=== PATIENT | female | born 1965 | race Caucasian/White ===

== ENCOUNTER → 2020-08-16 13:48 | Outpatient (BNVA) | payer MEDICAID, SELFPAY | PROVIDERS: PCP Internal Medicine; Referring Provider Internal Medicine; Visit Provider Anesthesiology | DX: M19.011 Primary osteoarthritis, right shoulder (principal); M19.012 Primary osteoarthritis, left shoulder | CPT/HCPCS: 99213 ==

== ENCOUNTER 2020-11-03 12:34 | Outpatient (REF) | payer MEDICAID, SELFPAY | END 2020-11-03 12:35 | disposition home or self-care (01) | LOC: HO.LAB 12:34 | PROVIDERS: PCP Internal Medicine; Visit Provider Internal Medicine | DX: Z20.828 Contact with and (suspected) exposure to other viral communicable diseases (principal) | CPT/HCPCS: 36415; C9803; U0003 ==

== ENCOUNTER 2021-01-06 11:42 | Outpatient (REF) | payer MEDICAID, SELFPAY ==
--- NOTE | ~2021-01-06 | MM_ITS ---
EXAMINATION: MM DIAGNOSTIC DIGITAL BREAST TOMOSYNTHESIS, LEFT CLINICAL INFORMATION: Six-month follow-up left breast calcifications The lifetime risk of breast cancer based on the Tyrer-Cuzick Model is 3.7%. COMPARISON: Mammography: 06/01/2020 and studies dating back to 10/01/2008. TECHNIQUE: Digital breast tomosynthesis is performed in both the craniocaudal and mediolateral oblique views along with computer-aided detection (CAD). Synthesized 2D images are generated from the tomosynthesis. Spot magnification views of the left breast performed in craniocaudal and 90 degree mediolateral views. FINDINGS: There are scattered areas of fibroglandular density (ACR BI-RADS breast composition Category b). There is again noted to be nodular breast parenchyma with a few nodules appearing smaller and a few appearing larger and adjacent to vessels and likely representing intramammary lymph nodes. A circumscribed density about the inferior lateral aspect middle depth appears stable with calcifications. On the nonmagnetic mediolateral oblique projection there appear to be 2 adjacent circumscribed densities medially adjacent to a vessel, one of which appears to have some calcification within it. On 90 degree magnification films there appear to be a few calcifications directly adjacent to the nodule. The calcifications within the breasts are similar in appearance, rounded without linear or branching forms. Recommend 6-month follow-up bilateral mammography with spot magnification views of the left breast and possible ultrasound if the densities appear to be increasing in size. Results are provided to the patient at time of visit by the technologist. MM/MM tomosynthesis diagnostic LT IMPRESSION: Recommend 6-month bilateral mammography with probable benign calcifications and multiple nodules likely representing intramammary lymph nodes. ASSESSMENT: BI-RADS 3: Probably Benign RECOMMENDATION: Diagnostic mammography in 6 months. This patient's information was entered into a reminder system with a target due date for their next mammogram.
== END 2021-01-06 11:43 | disposition home or self-care (01) ==
LOC: HO.MAMMO 11:42
PROVIDERS: PCP Internal Medicine; Visit Provider Internal Medicine
DX: R92.1 Mammographic calcification found on diagnostic imaging of breast (principal)
CPT/HCPCS: 77061; 77065

== ENCOUNTER → 2021-01-20 12:35 | Outpatient (BNVA) | payer MEDICAID, SELFPAY | PROVIDERS: PCP Internal Medicine; Visit Provider Internal Medicine | DX: R07.2 Precordial pain (principal); R94.31 Abnormal electrocardiogram [ECG] [EKG]; I49.3 Ventricular premature depolarization; I42.8 Other cardiomyopathies; I10 Essential (primary) hypertension | CPT/HCPCS: 93005; 99212 ==

== ENCOUNTER → 2021-01-24 07:42 | Outpatient (REF) | payer MEDICAID, SELFPAY ==
--- NOTE | 2021-01-24 07:41 | CA_ITS ---
Transthoracic Echocardiogram Patient (Last, First, Middle): Ramona Olivia G Gender: Female Date of : 1965 Age: 55 Procedure Date: 01/24/2021 Procedure Type: Transthoracic Echocardiogram Location: OP Height: 142.24 cm Weight: 68.04 kg BSA: 1.57 m2 Heart Rate: bpm BP: 139 / 91 mmHg Assistant Therapy Aide: DSDanny Referring MD: Josse Parrish MD Symptoms: I42.9 - Cardiomyopathy, unspecified Study Quality: Fair ECG Rhythm: Sinus Conclusions: - The left ventricular systolic function is normal. The visually estimated ejection fraction is between 55-60%. - No obvious valvular pathology seen on this study. Findings Left Ventricle Normal left ventricular cavity size. There is normal left ventricular wall thickness. The left ventricular systolic function is normal. The visually estimated ejection fraction is between 55-60%. There is no evidence of regional wall motion abnormalities. E/E prime ratio is between 8 and 15 consistent with indeterminate filling pressures. Evidence suggests grade I (mild) diastolic dysfunction. Right Ventricle Normal right ventricular cavity size and systolic function. Atria The left atrium is normal in size. The right atrium is normal in size. Aortic Valve There is a normal trileaflet aortic valve. There is no aortic valve stenosis. There is no aortic valve regurgitation. Mitral Valve The mitral valve appears normal. There is trace mitral valve regurgitation. There is no mitral valve stenosis. Pulmonic Valve The pulmonic valve was not well visualized. Tricuspid Valve Normal tricuspid valve structure. There is mild tricuspid valve regurgitation. The pulmonary artery systolic pressure is normal. Great Vessels Top normal ascending aorta size at 3.7 cm. Venous The inferior vena cava is normal in size and collapses greater than 50% with inspiration. Pericardium/Pleural There is no evidence of pericardial effusion. Prior Study Comparison No significant change compared to prior study dated: 12/23/2019. Recommendations, Care & Conclusions No obvious valvular pathology seen on this study. Measurements M-Mode Liner Measurements Normals - Women/Men LVIDd: 5.07 3.9-5.3/4.2-5.9 cm LVIDd Index: 3.23 1.9-3.2 cm/m2 LVIDs: 3.43 2.0-3.8 cm M-Mode Volumes LV EDV: 122.00 LV ESV: 48.50 2D Linear Measurements IVSd: 1.01 0.6-0.9/0.6-1.0 cm LVIDd: 4.49 3.9-5.3/4.2-5.9 cm LVIDd Index: 2.86 2.4-3.2/2.2-3.1 cm/m2 LVIDs: 3.53 2.0-3.6 cm LVPWd: 0.98 0.7-1.1 cm Ao Root: 2.70 2.1-3.5 cm LA Diam: 3.20 2.7-3.8/3.0-4.0 cm LAIDs Index: 2.04 1.5-2.3 cm/m2 LV Mass: 188.97 67-162/88-224 g LV Mass Index: 120.37 43-95/49-115 g/m2 LVOT Diam: 1.90 3.0+(-)1.3 cm 2D Systolic Function EF 4C: 59.00 >55% EF 2C: 57.20 >55% EF BiP: 58.00 >55% M-Mode Systolic Function FS: 32.30 27-47/25-43% LVEF: 60.20 >55% Mitral Valve MV Pk E: 0.64 MV PK A: 0.89 MV Decel Time: 176.00 E/A: 0.70 E'Lateral: 7.64 E'Medial: 5.61 E/E' Med: 11.40 E/E' Lat: 8.40 PHT: 52.00 MVA PHT: 4.23 Decel [place]: 3.64 Aortic Valve AoV Pk [place]: 1.25 AoV Pk Grad: 6.00 LVOT LVOT Pk [place]: 0.76 LVOT Mn [place]: 0.47 LVOT VTI: 0.17 LVOT Pk Grad: 2.00 LVOT Mn Grad: 1.00 LVOT Diam: 1.90 LVOT Area: 2.84 Diastolic Function MV Pk E: 0.64 MV Pk A: 0.89 E/A: 0.70 E'Medial: 5.61 E/E' Med: 11.40 E' Laterial: 7.64 E/E' Lat: 8.40 Tricuspid Valve TR Pk [place]: 2.21 TR Pk Grad: 20.00 RA Press: 3.00 RVSP: 23.00 Great Vessels Aorta Ao Root-2D: 2.70 2.0-3.7 cm Ao Asc: 3.70 2.1-3.4 cm Ao Arch: 2.30 Updated in Other Vendor System with Status of Final Josse Parrish MD electronically signed on 01/24/2021 1:19:30 PM with status of Final
== END ==
LOC: HO.CARD 07:42
PROVIDERS: PCP Internal Medicine; Visit Provider Internal Medicine
DX: I42.9 Cardiomyopathy, unspecified (principal)
CPT/HCPCS: 93306

== ENCOUNTER → 2021-02-08 07:36 | Outpatient (REF) | payer MEDICAID, SELFPAY ==
--- NOTE | ~2021-02-08 | NM_ITS ---
Lexiscan Myocardial perfusion study Indication: Premature ventricular contractions, chest pressure, assess for coronary disease and ischemia Technique: The patient was brought in for a Lexiscan perfusion study on 02/08/2021 and was injected 0.4 mg of Lexiscan intravenously. Within a minute of this injection 25 mCi of sestamibi was given intravenously. Images were obtained using the SPECT gamma camera interlaced with the gating device. Images were obtained in supine position. Resting perfusion study was performed on 02/09/2021. Patient was administered 25 mCi of sestamibi intravenously at rest. Images were then obtained in supine position. Total DLP 115mGy-cm. Images were processed with the software and compared side to side in short axis, horizontal long axis and vertical long axis views. Findings: Raw acquisition was reviewed. Patient's arms by her side. The stress perfusion study showed small area of mild perfusion defect in the inferolateral wall near apex. With CT attenuation correction, this is still persisting. Otherwise no significant abnormality elsewhere. The gated study shows normal LV systolic function with calculated LVEF of 62%. LV cavity is normal in size. The gated study shows normal wall thickening and contraction of segments. Resting study shows mild defect in the inferolateral wall near apex but otherwise unremarkable. Gating at rest reveals normal wall motion with ejection fraction at 68%. The findings are consistent with small fixed defect in the inferolateral wall near apex with some reversible and fixed components. NM/NM salma perf SPECT rest & str Impression: 1. Myocardial perfusion imaging study shows small defect in the inferolateral wall near apex with reversible and fixed components. However regional contractility/thickening is normal. Could be artifactual. Less likely to represent ischemia/infarct. 2. Gated LVEF is 62% during stress and 68% during rest. 3. Transient ischemic dilatation not present. EKG component of the test was reported separately.
--- NOTE | 2021-02-08 07:40 | CA_ITS ---
Acquisition Time: 2021-02-08 08:04:42 Total Exercise Time: 00:02:00 Test Indications: Abnormal ECG Medications: HCTZ HYDROXYZINE LISINOPRIL PANTOPRAZOLE TRAZADONE Protocol: LEXISCAN Max HR: 122 BPM 74% of Pred: 164 BPM Max BP: 142/094 mmHG Max Work Load: 1.0 METS Pharmacological stress test using Lexiscan while sitting and kicking her feet. Pt tolerated well, feeling anxious, c/o sharp chest pain in epigastric area, that goes away in recovery. Sx of headache reversed with Aminophyline 75 mg IV. EKG without arrhythmias, non-diagnostic for ischemia. Nuclear images to follow. Normotensive response to test. Test reviewed with Dr. Parrish. Referred By: Josse Parrish Overread By: Radha Gastelum NP
== END ==
LOC: HO.CARD 07:36
PROVIDERS: Visit Provider Internal Medicine
DX: R07.2 Precordial pain (principal); I49.3 Ventricular premature depolarization; I42.9 Cardiomyopathy, unspecified; R94.31 Abnormal electrocardiogram [ECG] [EKG]
CPT/HCPCS: 78452; 93017; 93225; 93226; A9500; J0280; J2785

== ENCOUNTER → 2021-03-04 10:33 | Outpatient (REF) | payer MEDICAID, SELFPAY ==
--- NOTE | 2021-03-04 11:15 | ECG_ITS ---
Hook-up date: 2021-03-04 11:03:00 Duration: 47:59:00 Test Indications: PVC'S Medications: 193534 QRS complexes 25 Ventricular ectopics which represent <1 % of total QRS comp. 1 Supraventricular ectopics which represent <1 % of total QRS comp. * Paced QRS complexs which represent % of total QRS comp. VENTRICULAR ECTOPY 25 Isolated 17 Bigeminal Cycles 0 Couplets 0 Runs 0 Beats in Runs * Beats LONGEST at * BPM at :: -- * Beats FASTEST at * BPM at :: -- SUPRAVENTRICULAR ECTOPY 1 Isolated 0 Couplets 0 Runs 0 Beats in Runs * Beats LONGEST at * BPM at :: -- * Beats FASTEST at * BPM at :: -- HEART RATES 65 MIN at 04:37:13 2021-03-05 87 AVG 145 MAX at 17:03:52 2021-03-04 LONGEST RR 1.0400 secs at 03:10:28 2021-03-05 S-T LEVELS Channel 1 - 128 mm at 11:03:00 2021-03-04 - 128 mm at 11:03:00 2021-03-04 Channel 2 - 128 mm at 11:03:00 2021-03-04 - 128 mm at 11:03:00 2021-03-04 Channel 3 - 128 mm at 03:02:21 -- - 128 mm at 03:02:21 Underlying rhythm is sinus; Average ventricular rate 87/min; range 65-145/min; Rare PVCs- 25 over 48 Hrs; Isolated beats and bigeminal cycles; Patient did not report any symptoms in the diary Referred By: Derrick Botello Overread By: DERRICK BOTELLO
== END ==
LOC: HO.CARD 10:33
PROVIDERS: Visit Provider Internal Medicine
DX: I49.3 Ventricular premature depolarization (principal)
CPT/HCPCS: 93225; 93226

== ENCOUNTER → 2021-03-10 12:32 | Outpatient (BNVA) | payer MEDICAID, SELFPAY | PROVIDERS: PCP Internal Medicine; Referring Provider Internal Medicine; Visit Provider Internal Medicine | DX: R07.2 Precordial pain (principal); R94.31 Abnormal electrocardiogram [ECG] [EKG]; I49.3 Ventricular premature depolarization; I42.8 Other cardiomyopathies; I10 Essential (primary) hypertension | CPT/HCPCS: 99212 ==

== ENCOUNTER 2021-07-14 12:50 | Outpatient (REF) | payer MEDICAID, SELFPAY ==
--- NOTE | ~2021-07-14 | MM_ITS ---
EXAMINATION: MM DIAGNOSTIC DIGITAL BREAST TOMOSYNTHESIS, BILATERAL CLINICAL INFORMATION: Waxing and waning nodular parenchymal pattern and probable benign tightly grouped calcifications overlying nodule mid 3:00 left breast. Due for yearly. The lifetime risk of breast cancer based on the Tyrer-Cuzick Model is 7%. COMPARISON: Mammography: 01/06/2021, 06/01/2020, 05/20/2020 (BI-RADS 0), 01/06/2019, 06/28/2017, 10/12/2016 TECHNIQUE: Digital breast tomosynthesis is performed in both the craniocaudal and mediolateral oblique views along with computer-aided detection (CAD). Synthesized 2D images are generated from the tomosynthesis. Additional views are obtained: Magnification left CC, magnification left ML. FINDINGS: There are scattered areas of fibroglandular density (ACR BI-RADS breast composition Category b). Parenchymal pattern is similar to prior studies. There are scattered stable asymmetries and minor fibronodular densities as before. No developing density or interval mass or architectural abnormality. There are scattered bilateral benign round and rim and dermal calcifications. The grouped calcifications 3:00 mid left breast are stable from prior diagnostic exams and will be reassessed again at next bilateral annual exam to conclude long-term surveillance, due in 12 months. Results are provided to the patient at time of visit by the technologist. MM/MM tomosynthesis diagnostic BI IMPRESSION: 1. Fibronodular parenchymal pattern with scattered minor asymmetries similar to prior exams. 2. Probable benign calcifications 3:00 left breast without change from prior diagnostic exams. ASSESSMENT: BI-RADS 3: Probably Benign RECOMMENDATION: Diagnostic mammography at time of next annual exam, due in 12 months. This patient's information was entered into a reminder system with a target due date for their next mammogram.
== END 2021-07-14 12:51 | disposition home or self-care (01) ==
LOC: HO.MAMMO 12:50
PROVIDERS: PCP Internal Medicine; Visit Provider Internal Medicine
DX: R92.1 Mammographic calcification found on diagnostic imaging of breast (principal)
CPT/HCPCS: 77062; 77066

== ENCOUNTER 2021-08-18 12:51 | Outpatient (REF) | payer MEDICAID, SELFPAY ==
--- NOTE | ~2021-08-18 | XR_ITS ---
EXAMINATION: XR SHOULDER, RIGHT CLINICAL INFORMATION: Pain COMPARISON: Previous x-ray November 2018 TECHNIQUE: Three views of the right shoulder. FINDINGS: Bone alignment is normal. No fracture or dislocation is seen. The glenohumeral joint is normal. There is arthritis at the acromioclavicular joint. Soft tissues are unremarkable. XR/XR shoulder RT min 2V IMPRESSION: Arthritis at the acromioclavicular joint.
== END 2021-08-18 12:52 | disposition home or self-care (01) ==
LOC: HO.HOSX 12:51
PROVIDERS: Visit Provider Orthopaedic Surgery
DX: M24.811 Other specific joint derangements of right shoulder, not elsewhere classified (principal)
CPT/HCPCS: 73030; 99202

== ENCOUNTER 2021-09-06 18:07 | Outpatient (REF) | payer MEDICAID, SELFPAY ==
--- NOTE | ~2021-09-06 | MR_ITS ---
EXAMINATION: MR SHOULDER WITHOUT CONTRAST, RIGHT CLINICAL INFORMATION: Right shoulder pain radiating down the right arm. COMPARISON: Most recent right shoulder radiographs dated 08/18/2021. TECHNIQUE: MRI of the shoulder without contrast was performed on a high-field scanner. FINDINGS: ROTATOR CUFF: Supraspinatus tendinosis with full-thickness partial tearing measuring 1.2 x 1.8 cm (AP by ML). There are anterior and posterior supraspinatus tendon fibers remaining intact. Mild infraspinatus tendinosis with anterior articular surface fraying/partial tearing. Mild teres minor muscle atrophy. BICEPS: Mild proximal long head biceps tendinosis. CORACOACROMIAL ARCH: The undersurface of the acromion is curved with no subacromial spur. Uhtg-nh-ptwzfsio acromioclavicular osteoarthritis with capsular and marrow edema. LABRUM/CAPSULE: Mild fraying through the posterosuperior labrum without undersurface tearing. Intact joint capsule. GLENOHUMERAL JOINT/MARROW: Intact articular cartilage. Orhgw-sy-psxiiyih joint effusion. MR/MR shoulder RT wo con IMPRESSION: 1. Supraspinatus tendinosis with full-thickness partial tearing measuring 1.2 x 1.8 cm (AP by ML). Mild infraspinatus tendinosis with anterior articular surface fraying/partial tearing. Mild teres minor muscle atrophy. 2. Mild proximal long head biceps tendinosis. 3. Vejk-ar-mvyohtwj acromioclavicular osteoarthritis with associated edema. 4. Mild peripheral fraying of the posterosuperior labrum. No undersurface of the tear. 5. Pfwks-uw-texwzmko joint effusion.
== END 2021-09-06 18:08 | disposition home or self-care (01) ==
LOC: HO.MRI 18:07
PROVIDERS: Visit Provider Orthopaedic Surgery
DX: M24.811 Other specific joint derangements of right shoulder, not elsewhere classified (principal)
CPT/HCPCS: 73221

== ENCOUNTER → 2021-09-21 11:45 | Outpatient (BNVA) | payer MEDICAID, SELFPAY | PROVIDERS: PCP Internal Medicine; Referring Provider Internal Medicine; Visit Provider Internal Medicine | DX: I49.3 Ventricular premature depolarization (principal); I42.8 Other cardiomyopathies; I10 Essential (primary) hypertension; R07.2 Precordial pain; R94.31 Abnormal electrocardiogram [ECG] [EKG] | CPT/HCPCS: 93005; 99212 ==

== ENCOUNTER → 2021-09-26 13:20 | Outpatient (BNVA) | payer MEDICAID, SELFPAY | PROVIDERS: Visit Provider Orthopaedic Surgery | DX: M75.101 Unspecified rotator cuff tear or rupture of right shoulder, not specified as traumatic (principal) | CPT/HCPCS: 99212 ==

== ENCOUNTER → 2021-09-28 08:42 | Day surgery (SDC) | payer MEDICAID, SELFPAY ==
--- NOTE | 2021-09-27 11:50 | P.CONAN_ITS ---
Documented by User: Mary Warner NP 09/27/21 12:02 HPI - Anesthesia Eval Consult details Narrative: 56yo F for Right Arthroscopic Rotator Cuff Repair Stable at routine cardiac visit 08/2021, recent neg cardiac w/u. See Exam below [facility] Active Problems Active Problems: All Active Problems (Updated 09/26/21 @ 15:22 by Manjinder Watkins MD) Rotator cuff tear, right (Acute) Internal derangement of right shoulder (Acute) Essential hypertension (Acute) Precordial chest pain (Acute) Cardiomyopathy (Acute) PVC (premature ventricular contraction) (Acute) Abnormal EKG (Acute) Osteoarthritis of shoulders, bilateral (Acute) Past Medical History Medical History Cardiomyopathy Essential hypertension Osteoarthritis of shoulders, bilateral PVC (premature ventricular contraction) Family History Family History Mother Heart disease Surgical History Surgical History History of section History of sleeve gastrectomy (~08/2014) History of tubal ligation Social History Social History (Updated 09/21/21 @ 13:01 by CAROL Velazquez) Patient Tobacco Use Status: Never used Tobacco Advance Directives: No Advance Directives Information Provided: Yes Current occupational status: disabled 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 Meds Allergies Allergy/AdvReac Type Severity Reaction Status Date / Time No Known Allergies Allergy Verified 09/21/21 13:01 Home Medications Medication Instructions Recorded Confirmed Last Taken Type albuterol sulfate 90 mcg/actuation 1 inh INHALATION QID 01/20/21 09/21/21 Unknown History aerosol inhaler bupropion HCl 300 mg 24 hr tablet, 300 mg PO QAM 01/20/21 09/21/21 Unknown History extended release (Wellbutrin XL) hydrochlorothiazide 25 mg tablet 25 mg PO DAILY 01/20/21 09/21/21 Unknown History hydroxyzine pamoate 50 mg capsule 50 mg PO Q6H cap 01/20/21 09/21/21 Unknown History (Vistaril) lamotrigine 200 mg tablet 200 mg PO BID 01/20/21 09/21/21 Unknown History (Lamictal) lisinopril 5 mg tablet 5 mg PO DAILY 01/20/21 09/21/21 Unknown History pantoprazole 40 mg tablet,delayed 40 mg PO DAILY 01/20/21 09/21/21 Unknown History release trazodone 50 mg tablet 50 mg PO BEDTIME PRN 01/20/21 09/21/21 Unknown History diltiazem HCl 120 mg 120 mg PO DAILY 09/21/21 09/21/21 Unknown History capsule,extended release 24 hr Exam Exam Date and Time: September 27, 2021 1150 Narrative Narrative: EKG 08/2021 sinus rhythm at 74/Min and nonspecific ST-T changes normal [place]/QTc Holter 02/2021 Underlying rhythm is sinus; Average ventricular rate 87/min; range 65-145/min; Rare PVCs- 25 over 48 Hrs; Isolated beats? and bigeminal cycles; Patient did not report any symptoms in the diary ? Per Dr Parrish at 08/2021 routine cardiac appointment: Lexiscan stress test shows a small defect in the inferolateral wall near apex with reversible and fixed components but with normal contractility.? Coronary CTA with mild calcification in the left main and LAD but otherwise normal coronaries.? No specific therapy required.? Possibly statins in the future. Based on a prior echocardiogram from [facility] in 2013, her LVEF was 40-45%.? There was global hypokinesis.? Repeat echocardiograms had shown normal LVEF.? In the most recent study, it was 55-60%.? No further workup at this time. Assessment and Plan Assessment Anesthesia Assessment: Chart Reviewed Documented by User: Edie Kessler MD 09/28/21 09:17 [facility] Past Medical History Medical History Cardiomyopathy Essential hypertension Osteoarthritis of shoulders, bilateral PVC (premature ventricular contraction) Family History Family History Mother Heart disease Surgical History Surgical History History of section History of sleeve gastrectomy (~08/2014) History of tubal ligation Social History Social History (Updated 09/21/21 @ 13:01 by CAROL Velazquez) Patient Tobacco Use Status: Never used Tobacco Advance Directives: No Advance Directives Information Provided: Yes Current occupational status: disabled 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 Meds Allergies Allergy/AdvReac Type Severity Reaction Status Date / Time No Known Allergies Allergy Verified 09/21/21 13:01 Home Medications Medication Instructions Recorded Confirmed Last Taken Type albuterol sulfate 90 mcg/actuation 1 inh INHALATION QID 01/20/21 09/21/21 Unknown History aerosol inhaler bupropion HCl 300 mg 24 hr tablet, 300 mg PO QAM 01/20/21 09/21/21 Unknown History extended release (Wellbutrin XL) hydrochlorothiazide 25 mg tablet 25 mg PO DAILY 01/20/21 09/21/21 Unknown History hydroxyzine pamoate 50 mg capsule 50 mg PO Q6H cap 01/20/21 09/21/21 Unknown History (Vistaril) lamotrigine 200 mg tablet 200 mg PO BID 01/20/21 09/21/21 Unknown History (Lamictal) lisinopril 5 mg tablet 5 mg PO DAILY 01/20/21 09/21/21 Unknown History pantoprazole 40 mg tablet,delayed 40 mg PO DAILY 01/20/21 09/21/21 Unknown History release trazodone 50 mg tablet 50 mg PO BEDTIME PRN 01/20/21 09/21/21 Unknown History diltiazem HCl 120 mg 120 mg PO DAILY 09/21/21 09/21/21 Unknown History capsule,extended release 24 hr Exam Airway Mallampati Class: II TM Dist: >3cm Neck ROM: Full Denture: Upper
[2021-09-28] VITALS (16 sets, daily range): BP systolic 110–164; BP diastolic 65–107; PULSE 78–100; RESP 16–24; TEMP 36.1–36.5; O2SAT 92–99; BMI 34.9
[2021-09-28 09:25] LABS: Hematocrit 44.6 % (37.0-47.0); Hemoglobin 14.5 g/dl (12.0-16.0); Mean Corpuscular HGB Conc 32.5 g/dl (31.0-35.0); Mean Corpuscular Hemoglobin 29.2 pg (27.0-33.0); Mean Corpuscular Volume 89.9 fL (80.0-98.0); Mean Platelet Volume 10.3 fL (9.4-12.3); Platelet Count 293 X10*3/uL (160-400); Red Blood Count 4.96 X10*6/uL (4.20-5.50); Red Cell Distribution Width 12.5 % (11.0-16.0); White Blood Count 6.5 X10*3/uL (4.8-10.8)
[2021-09-28 09:46] LABS: Anion Gap 15 (12-20); Blood Urea Nitrogen 13 mg/dL (9-16); Calcium 9.6 mg/dL (8.4-10.2); Carbon Dioxide 27 mmol/L (22-29); Chloride 104 mmol/L (96-108); Creatinine Clr Calc Pharmacy 56.4; Estimated Glomerular Filt Rate > 60; Glucose Fasting 100 mg/dL (60-99); Potassium 4.4 mmol/L (3.3-5.1); Sodium 142 mmol/L (135-145)
[2021-09-28] MEDS: Lactated Ringers 1,000 ML 50 ML IVCONT (09:46)
--- NOTE | 2021-09-28 11:20 | MHC.SHP ---
Pre-Procedural Eval Section A Date of Service: 09/28/21 The patient is an INPATIENT: No Changes since office visit: Yes Patient answered all questions; No Cold of Flu in the past 2 weeks, No New Medical Problems and No Changes in Medication The History & Physical has been completed within 30 days and I have reviewed it.: Yes Section B Chief Complaint: joint derangement of right shoulder Allergies: Allergies Allergy/AdvReac Type Severity Reaction Status Date / Time No Known Allergies Allergy Verified 09/21/21 13:01 Plan I have reviewed the history and physical and performed a pertinent physical examination on my patient. No changes have occurred unless specified.
--- NOTE | 2021-09-28 14:12 | P.BOP_ITS ---
Brief Operative Note Date of Service: 09/28/21 Pre-op diagnosis: right RTC tear Post-op diagnosis: other (right stc tear and right biceps tendon tear) Procedure: rtc repair with biceps tenotomy Implants: [employer] Helacoil 4.75 x 2 and Helacoil 5.0 knotless x 2 Surgeon: Manjindre Watkins MD Anesthesia: GETA and regional Was an Humanities And Languages Professor used for this Procedure?: Yes Humanities And Languages Professor: Malaika Rascon Estimated blood loss (mL): 20 IV fluids (mL): 1,100 Pathology: none sent Condition: stable Disposition: PACU
--- NOTE | 2021-09-28 14:15 | W.PM.OPN ---
Operative Note Operative Note Date of Service: 09/28/21 Narrative: Pre-op diagnosis: right RTC tear Post-op diagnosis: other (right stc tear and right biceps tendon tear) Procedure: rtc repair with biceps tenotomy Implants: [employer] Helacoil 4.75 x 2 and Helacoil 5.0 knotless x 2 Surgeon: Manjinder Watkins MD Anesthesia: GETA and regional Was an Internet Researcher used for this Procedure?: Yes Internet Researcher: Malaika Rascon Estimated blood loss (mL): 20 IV fluids (mL): 1,100 Pathology: none sent Condition: stable Disposition: PACU Procedure in detail:? Patient was brought to the operating room and placed the the beach chair position. All bony prominences were well padded and the limb was prepped and draped in standard sterile fashion. A time out was called to identify proper site, proper procedure and proper surgeon. IV antibiotics per weight were administered. I began by making a posterolateral stab incision with a 15 blade. A blunt trochar was placed into the glenohumeral joint and I insufflated the joint with saline and a 30 degree arthroscope was placed. I established an outside- in anterior portal just distal to the biceps tendon. I then began my inspection of the glenohumeral joint.? There was labral fraying and a high grade tear of the bicpe anchor. This was tenotomized and the labrum debrided.? Cartilaginous surfaces were normal.? This subscapularis was intact.? There was a large undersurface full-thickness rotator cuff tear. I then removed the trochar and entered the subacromial space. A direct lateral portal was then established and I performed a bursectomy. The cuff was then examined.? There was a large? crescentic full-thickness tear of the supraspinatus.? it was mobile and I placed 2 4.75 medial row Healicoil anchors and then using a scorpion ran each of these a sutures through the cuff.? I then debrided the rotator cuff bed down to bleeding bone and placed 2 lateral row 5.0 knotless suture anchors and a cross bridge technique brought tht cuff over adn down to the lateral row.? I had excellent reproduction of the normal anatomy of rotator cuff and was satisfied with the compression and tension in the cuff.? I then performed a minimal subacromial decompression with a bur and took my final pictures.? I was satisfied with the repair. ? All instrumentation was then removed portals were closed with nylon.? Patient was placed into a abduction sling after sterile dressings were applied.? She was extubated brought to recovery in stable condition there were no known complications.
[2021-09-28] MEDS: oxyCODONE HCl Immed Release 5 MG TABLET PO (14:50)
[2021-09-28] MEDS: fentaNYL citrate/PF 100 MCG/2 ML VIAL 50 MCG IVPUSH ×2 (14:57→15:50)
[2021-09-28] MEDS: ondansetron HCL 4 MG/2 ML VIAL IVPUSH (15:47)
== END | disposition home or self-care (01) ==
PROVIDERS: Nurse Practitioner; Visit Provider Orthopaedic Surgery
PROC: (CPT 29827; principal; 2021-09-28 10:50)
DX: M75.101 Unspecified rotator cuff tear or rupture of right shoulder, not specified as traumatic (principal); M66.821 Spontaneous rupture of other tendons, right upper arm; M19.011 Primary osteoarthritis, right shoulder; I10 Essential (primary) hypertension
CPT/HCPCS: 29827; 29826; 36415; 80048; 85027; C1713; J0171; J0690; J1100; J2250; J2370; J2405; J3010

== ENCOUNTER → 2021-09-30 15:45 | Outpatient (BNVA) | payer MEDICAID, SELFPAY | PROVIDERS: Visit Provider Orthopaedic Surgery | DX: Z98.890 Other specified postprocedural states (principal) | CPT/HCPCS: 99212 ==

== ENCOUNTER → 2021-10-03 10:22 | Outpatient (BNVA) | payer MEDICAID, SELFPAY | PROVIDERS: Visit Provider Physician Assistant | DX: M75.101 Unspecified rotator cuff tear or rupture of right shoulder, not specified as traumatic (principal) | CPT/HCPCS: 99212 ==

== ENCOUNTER → 2021-11-07 12:39 | Outpatient (BNVA) | payer MEDICAID, SELFPAY | PROVIDERS: Visit Provider Physician Assistant | DX: Z98.890 Other specified postprocedural states (principal) | CPT/HCPCS: 99212 ==

== ENCOUNTER → 2021-12-22 12:11 | Outpatient (BNVA) | payer MEDICAID, SELFPAY | PROVIDERS: Visit Provider Physician Assistant | DX: Z47.89 Encounter for other orthopedic aftercare (principal); Z98.890 Other specified postprocedural states | CPT/HCPCS: 99212 ==

== ENCOUNTER 2022-01-06 14:00 | Outpatient (RCR) | payer MEDICAID, MEDICARE, SELFPAY ==
--- NOTE | 2021-10-19 17:59 | MHC.PT.PR ---
[facility] [place] Office [place] Office [place] Office [address] Elton Dixon 140 [facility] [phone] F: [phone] F: [phone] F: [phone] F: [phone] Physical Therapy Progress Note Diagnosis: R shoulder RTC repair with biceps tenotomy 09/28/21 Date of Surgery: 09/28/21 Date of Evaluation: 10/19/21 Treatments to Date: 1 Cancellations to Date: No Shows to Date: Subjective: Please see initial PT evaluaation Pain Score and Location: 08/07 currently and at worst R shoulder Objective Measures: Please see initial PT evaluation Assessment: Pt is a 56yo F s/p large R RTC repair with biceps tenotomy with Dr. Watkins on 09/28/21. Pt presents today with current impairments in decreased PROM throughout R shoulder, pain, impaired strength, and impaired posture. She requires cues to don/doff abduction pillow sling properly. She is limited functionally with ADLs as she is unable to actively use her RUE per RTC protocol. She is a good candidate for skilled PT services in order to address current impairments per protocol each week. She will be seen 2x/week for 16 weeks in order to progress per protocol in order to facilitate return to PLOF. PT Plan: Frequency and Duration: The patient will be seen 2x/week for 16 weeks Treatment Plan: Therapeutic Exercise Dynamic Therapeutic Activities Neuromuscular Re-ed Manual Therapies Joint Mobilization Taping Gait Home Exercise Program Patient Education Hot or Cold Pack Other Reviewed/ Agreed with Student Documentation: Therapist: Thank you once again for your referral.
--- NOTE | 2022-01-20 14:21 | MHC.PT.DC ---
[facility] [place] Office [place] Office [place] Office [address] Elton Dixon [address] [phone] F: [phone] F: [phone] F: [phone] F: [phone] Physical Therapy Discharge Report Diagnosis: R shoulder RTC repair with biceps tenotomy 09/28/21 Date of Surgery: 09/28/21 Date of Evaluation: 10/19/21 Date of Discharge: 01/20/22 Treatments to Date: 9 Cancellations to Date: 2 No Shows to Date: 4 Discharge Status: Visit Non-compliance Discharge Summary: Pt was seen for PT from 10/19/21-01/06/22 for R RTC repair with biceps tenotomy. Pt made fair progress with PT and had difficulty progressing per RTC protocol. She has had 4 no-shows since SOC including her last 3 scheduled PT appointments. Pt is being from skilled PT at this time per [facility] attendance policy and visit non-compliance. Pt current level of function unknown at this time. Electronically signed by: Alba Cain, PT, DPT Please sign and return to therapist. Thank you for your referral.
== END 2022-01-20 14:21 | disposition home or self-care (01) ==
LOC: HO.PT 14:00
PROVIDERS: PCP Internal Medicine; Visit Provider Physician Assistant
DX: M75.101 Unspecified rotator cuff tear or rupture of right shoulder, not specified as traumatic (principal)
CPT/HCPCS: 97110; 97140; 97162

== ENCOUNTER 2022-07-17 12:01 | Outpatient (REF) | payer MEDICARE, MEDICAID, SELFPAY ==
--- NOTE | ~2022-07-17 | MM_ITS ---
EXAMINATION: MM DIAGNOSTIC DIGITAL BREAST TOMOSYNTHESIS, BILATERAL CLINICAL INFORMATION: Due for yearly. Also follow-up probable benign tightly grouped calcifications overlying small nodule mid 3:00 left breast. The lifetime risk of breast cancer based on the Tyrer-Cuzick Model is 4%. COMPARISON: Mammography: 07/14/2021, 01/06/2021, 06/01/2020, 05/20/2020 (BI-RADS 0), 01/06/2019 TECHNIQUE: Digital breast tomosynthesis is performed in both the craniocaudal and mediolateral oblique views along with computer-aided detection (CAD). Synthesized 2D images are generated from the tomosynthesis. Additional magnification left CC x2 and magnification left ML views are provided. FINDINGS: There are scattered areas of fibroglandular density (ACR BI-RADS breast composition Category b). Parenchymal pattern is similar to prior studies. There is scattered benign nodularity stable to borderline decreased. There is no developing density or interval architectural abnormality. There are no abnormal calcifications. The nodule with fine layering calcifications for follow-up anterior 3:00 left breast is less conspicuous. Calcifications are decreased. This concludes long-term surveillance. The axilla and skin contours are unremarkable. Results are provided to the patient at time of visit by the technologist. MM/MM tomosynthesis diagnostic BI IMPRESSION: -No mammographic evidence of malignancy. -Calcifications for follow-up 3:00 left breast are stable to decreased and now considered to be benign. ASSESSMENT: BI-RADS 2: Benign RECOMMENDATION: Routine annual mammography screening. This patient's information was entered into a reminder system with a target due date for their next mammogram.
== END 2022-07-17 12:02 | disposition home or self-care (01) ==
LOC: HO.MAMMO 12:01
PROVIDERS: PCP Internal Medicine; Visit Provider Internal Medicine
DX: R92.1 Mammographic calcification found on diagnostic imaging of breast (principal)
CPT/HCPCS: 77062; 77066

== ENCOUNTER → 2022-09-25 10:21 | Outpatient (BNVA) | payer MEDICARE, MEDICAID, SELFPAY | PROVIDERS: PCP Internal Medicine; Referring Provider Internal Medicine; Visit Provider Internal Medicine | DX: I25.10 Atherosclerotic heart disease of native coronary artery without angina pectoris (principal); I49.3 Ventricular premature depolarization; I42.8 Other cardiomyopathies; I10 Essential (primary) hypertension | CPT/HCPCS: 93005; 99212 ==

== ENCOUNTER → 2022-10-09 12:44 | Outpatient (REF) | payer MEDICARE, MEDICAID, SELFPAY | LOC: HO.SL 12:44 | PROVIDERS: PCP Internal Medicine; Visit Provider Internal Medicine | DX: G47.33 Obstructive sleep apnea (adult) (pediatric) (principal) | CPT/HCPCS: 95810 ==

== ENCOUNTER 2023-04-24 08:09 | Day surgery (SDC) | payer MEDICARE, MEDICAID, SELFPAY ==
--- NOTE | 2023-04-23 08:39 | P.CONAN_ITS ---
Documented by User: Mary Warner NP 04/23/23 08:43 HPI - Anesthesia Eval Consult details Narrative: 57yo F for Upper Endoscopy and Colonoscopy Stable at 08/2022 cardiology office visit. w/u for intermit CP prior to visit showed noncardiac origin. PMFSH Active Problems Active Problems: All Active Problems (Updated 04/23/23 @ 07:58 by Sanjana Isaac RN) Abnormal EKG (Acute) Precordial chest pain (Acute) Internal derangement of right shoulder (Acute) Rotator cuff tear, right (Acute) Status post right rotator cuff repair (Acute) Atherosclerotic cardiovascular disease (Acute) Essential hypertension (Acute) Cardiomyopathy (Acute) PVC (premature ventricular contraction) (Acute) Osteoarthritis of shoulders, bilateral (Acute) Past Medical History Medical History (Updated 04/23/23 @ 07:58 by Sanjana Isaac RN) Anemia Asthma Cardiomyopathy Depression Essential hypertension GERD (gastroesophageal reflux disease) HTN (hypertension) Hyperlipidemia Hypothyroid IBS (irritable bowel syndrome) Myocardial infarction Osteoarthritis of shoulders, bilateral PVC (premature ventricular contraction) Sleep apnea Stroke Family History Family History Mother Heart disease Surgical History Surgical History (Updated 04/23/23 @ 07:56 by Sanjana Isaac RN) History of section History of endometrial ablation History of sleeve gastrectomy (~08/2014) History of tubal ligation Social History Social History Are you a primary nursing care attendant to a significant other at home: No Do you presently have visiting nurse or other home services: No Patient Tobacco Use Status: Never used Tobacco Have you been hit, kicked, punched, or otherwise hurt by someone within the past year? 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 Meds Allergies Allergy/AdvReac Type Severity Reaction Status Date / Time No Known Allergies Allergy Verified 09/25/22 10:59 Home Medications Medication Instructions Recorded Confirmed Last Taken Type albuterol sulfate 90 mcg/actuation 1 inh inhalation QID 01/20/21 09/25/22 Unknown History aerosol inhaler bupropion HCl 300 mg 24 hr tablet, 300 mg PO QAM 01/20/21 09/25/22 Unknown His tory extended release (Wellbutrin XL) hydrochlorothiazide 25 mg tablet 25 mg PO DAILY 01/20/21 09/25/22 Unknown History hydroxyzine pamoate 50 mg capsule 50 mg PO Q6H 01/20/21 09/25/22 Unknown History (Vistaril) lamotrigine 200 mg tablet 200 mg PO BID 01/20/21 09/25/22 Unknown History (Lamictal) lisinopril 5 mg tablet 5 mg PO DAILY 01/20/21 09/25/22 Unknown History pantoprazole 40 mg tablet,delayed 40 mg PO DAILY 01/20/21 09/25/22 Unknown History release trazodone 50 mg tablet 50 mg PO BEDTIME PRN 01/20/21 09/25/22 Unknown History Exam Exam Date and Time: April 23, 2023 0839 Narrative Narrative: EKG 08/2022 sinus rhythm at 73/Min; nonspecific ST-T changes; normal MT and corrected QT. Per 08/2022 cardiac office visit Lexiscan stress test shows a small defect in the inferolateral wall near apex with reversible and fixed components but with normal contractility.? Coronary CTA with mild calcification in the left main and LAD but otherwise normal coronaries. ECHO 2020 Conclusions: - The left ventricular systolic function is normal.? The visually estimated ejection fraction is between 55-60%. ? - No obvious valvular pathology seen on this study.? Assessment and Plan Assessment Anesthesia Assessment: Chart Reviewed Documented by User: Cornelio Rodríguez MD 04/24/23 10:56 [facility] Past Medical History Medical History (Updated 04/23/23 @ 07:58 by Sanjana Isaac RN) Anemia Asthma Cardiomyopathy Depression Essential hypertension GERD (gastroesophageal reflux disease) HTN (hypertension) Hyperlipidemia Hypothyroid IBS (irritable bowel syndrome) Myocardial infarction Osteoarthritis of shoulders, bilateral PVC (premature ventricular contraction) Sleep apnea Stroke Family History Family History Mother Heart disease Family history of problems with anesthesia: No Surgical History Surgical History (Updated 04/23/23 @ 07:56 by Sanjana Isaac RN) History of section History of endometrial ablation History of sleeve gastrectomy (~08/2014) History of tubal ligation History of Problems with Anesthesia: No Social History Social History Are you a primary nursing care attendant to a significant other at home: No Do you presently have visiting nurse or other home services: No Patient Tobacco Use Status: Never used Tobacco Have you been hit, kicked, punched, or otherwise hurt by someone within the past year? 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 Meds Allergies Allergy/AdvReac Type Severity Reaction Status Date / Time No Known Allergies Allergy Verified 09/25/22 10:59 Home Medications Medication Instructions Recorded Confirmed Last Taken Type albuterol sulfate 90 mcg/actuation 1 inh inhalation QID 01/20/21 09/25/22 Unknown History aerosol inhaler bupropion HCl 300 mg 24 hr tablet, 300 mg PO QAM 01/20/21 09/25/22 Unknown History extended release (Wellbutrin XL) hydrochlorothiazide 25 mg tablet 25 mg PO DAILY 01/20/21 09/25/22 Unknown Histo ry hydroxyzine pamoate 50 mg capsule 50 mg PO Q6H 01/20/21 09/25/22 Unknown History (Vistaril) lamotrigine 200 mg tablet 200 mg PO BID 01/20/21 09/25/22 Unknown History (Lamictal) lisinopril 5 mg tablet 5 mg PO DAILY 01/20/21 09/25/22 Unknown History pantoprazole 40 mg tablet,delayed 40 mg PO DAILY 01/20/21 09/25/22 Unknown History release trazodone 50 mg tablet 50 mg PO BEDTIME PRN 01/20/21 09/25/22 Unknown History Exam Airway Mallampati Class: II TM Dist: <=3cm Neck ROM: Full Denture: Upper and Lower Loose/Missing/Broken Teeth: Yes, Upper and Lower Heart: OK. see above. Lungs: ok Assessment and Plan Assessment Anesthesia Assessment: Anesthesia Plan Discussed Final Anesthetic Review Family History of Problems with Anesthesia: No History of Problems with Anesthesia: No NPO: Yes ASA Class: IV Final Preanesthetic Review: No Changes in Pt Med Stat, Meds/Allgs Chart Revi ewed, Consent Obtained/Reviewed and Anes Risks/Benef Reviewed Patient Risk: High Procedure Risk: Intermediate Anesthetic Plan Anesthetic Plan: MAC: and Agree w/ Assess. and Plan Disposition: Standard PACU
[2023-04-24 09:46] VITALS: BP 138/86; PULSE 72; RESP 18; TEMP 36.4; O2SAT 96; BMI 35.3
[2023-04-24] MEDS: Lactated Ringers 1,000 ML 50 ML IVCONT (09:53)
--- NOTE | 2023-04-24 10:14 | P.HPSUR_ITS ---
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,Screening Details of Present Illness: see H&P no changes Relevant Family History (Specify if Yes): No Relevant Social History: None Present Medications: see Short Stay Collaborative assessment Medical History: No relevant PMH History of Previous Operations: No relevant previous surgery Allergies: Allergies Allergy/AdvReac Type Severity Reaction Status Date / Time No Known Allergies Allergy Verified 09/25/22 10:59 Review of Systems Sugical H&P ROS: Negative: Constitution, Cardiovascular, Respiratory, Neurologi rick, Psychiatric, Hem-Onc, Allergic/Immunologic, Gastrointestinal, Genitourinary, Musculoskeletal, Integumentary, Endocrine and Eyes/Ears/Nose/Throat Exam Surgical H&P Exam: Normal: HEENT, Normal: Heart, Normal: Lungs, Normal: Extremities, Normal: Abdomen, Normal: Skin and Normal: Neurological Plan Diagnosis/Plan: Unchanged I have reviewed the history and physical and performed a pertinent physical examination on my patient. No changes have occurred unless specified. Time Spent With Patient Time: Total time managing care of this patient today ____ minutes.
--- NOTE | 2023-04-24 11:09 | PM.OP ---
Brief Operative Note Date of Service: 04/24/23 Pre-op diagnosis: barretts screening Post-op diagnosis: same Procedure: egd colonoscopy Surgeon: Genaro Niño Was an [employer] used for this Procedure?: No Estimated blood loss (mL): 2 Pathology: other Condition: stable Disposition: PACU
[2023-04-24 11:17] VITALS: BP 93/54; PULSE 83; RESP 18; TEMP 36.6; O2SAT 95
[2023-04-24 11:32] VITALS: BP 111/77; PULSE 71; RESP 18; TEMP 36.7; O2SAT 98
--- NOTE | 2023-04-24 11:56 | OP_ITS ---
DATE OF SERVICE: 04/24/2023 SURGEON: Genaro Niño MD INDICATIONS: 1. Shultz esophagus. 2. Colon cancer screening. PREOPERATIVE DIAGNOSIS: POSTOPERATIVE DIAGNOSIS: PROCEDURE PERFORMED: Upper endoscopy with biopsy, colonoscopy to the terminal ileum. ESTIMATED BLOOD LOSS: COMPLICATIONS: ANESTHESIA: Monitored anesthesia care. ASSISTANTS: SPECIMENS: DESCRIPTION OF PROCEDURE: A history and physical was performed. The risks and benefits of the procedure were explained to the patient. Informed consent was obtained. The patient was placed in the left lateral decubitus position. A digital rectal exam was performed and was found to be normal. The Olympus video gastroscope was introduced into the esophagus, stomach, and duodenum. Examination was performed. The scope was removed. She tolerated the procedure well, and was repositioned for colonoscopy where the above-mentioned digital rectal exam was performed. The Olympus pediatric video colonoscope was introduced in the rectum and advanced to the cecum without difficulty. The cecum was identified by transillumination, palpation, and identification of ileocecal valve. Examination was performed. The scope was removed. She tolerated both procedures well and was returned to the recovery area in stable condition. FINDINGS: Upper endoscopy: 1. Esophagus: The esophagus was normal. There was no esophagitis. There were no raised lesions or ulcerated areas at the EG junction. Biopsies were obtained from this area. 2. Stomach: The stomach showed surgical changes consistent with the patient's history of laparoscopic Seth-en-Y gastric bypass surgery. There were some visible gato at the gastrojejunal anastomosis, but the anastomosis was widely patent, and the small gastric pouch appeared normal. Retroflexed examination was normal. The Seth limb was explored for approximately 20 cm with no abnormalities noted. Colonoscopy: The terminal ileum was examined and appeared normal. The visualized colonic mucosa was normal. The quality of the prep was good with some undigested food material that was washed and suctioned as best possible. This did limit the sensitivity of the examination for detection of small polyps. No polyps were identified. There was mild sigmoid diverticulosis. Retroflexed examination was normal. IMPRESSION: 1. Shultz esophagus. 2. Normal colonoscopy. RECOMMENDATION: 1. Follow up the biopsy results. 2. Screening colonoscopy is recommended every 10 years for average risk individuals. MD PAIGE Sarmiento/XIOMARA / [id number]
== END 2023-04-24 11:56 | disposition home or self-care (01) ==
PROVIDERS: PCP Internal Medicine; Visit Provider Internal Medicine Gastroenterology
PROC: (CPT 43239; principal; 2023-04-24 09:30)
DX: Z12.11 Encounter for screening for malignant neoplasm of colon (principal); K57.30 Diverticulosis of large intestine without perforation or abscess without bleeding; K22.70 Barrett's esophagus without dysplasia; K21.9 Gastro-esophageal reflux disease without esophagitis; I10 Essential (primary) hypertension; J45.909 Unspecified asthma, uncomplicated; Z79.899 Other long term (current) drug therapy; Z98.84 Bariatric surgery status
CPT/HCPCS: 43239; G0121; 88305; J3010

== ENCOUNTER 2023-09-13 16:08 | Outpatient (REF) | payer OTHER, SELFPAY ==
[2023-09-13 16:23] LABS: MANUAL DIFF FLAG NO
[2023-09-13 17:45] LABS: Basophils Absolute Auto 0.1 X10*3/uL (0.0-0.2); Basophils Percent Auto 1.4 % (0-2); Eosinophils Absolute Auto 0.7 X10*3/uL (0.0-0.4); Eosinophils Percent Auto 8.6 % (0-4); Hematocrit 42.1 % (37.0-47.0); Hemoglobin 13.5 g/dl (12.0-16.0); Imm Gran Abs Auto 0.02 X10*3/uL (0.00-0.03); Imm Gran Pct Auto 0.3 % (0.0-0.4); Lymphocytes Percent Auto 38.2 % (20-40); Mean Corpuscular HGB Conc 32.1 g/dl (31.0-35.0); Mean Corpuscular Hemoglobin 29.3 pg (27.0-33.0); Mean Corpuscular Volume 91.5 fL (80.0-98.0); Mean Platelet Volume 10.7 fL (9.4-12.3); Monocytes Absolute Auto 0.9 X10*3/uL (0.1-1.2); Monocytes Percent Auto 11.5 % (2-11); Neutrophils Absolute Auto 3.2 x10*3/uL (2.0-8.3); Platelet Count 310 X10*3/uL (160-400); Red Cell Distribution Width 12.7 % (11.0-16.0); White Blood Count 7.9 X10*3/uL (4.8-10.8)
[2023-09-13 18:13] LABS: C Reactive Protein < 0.10 mg/dL (< or = 0.50)
[2023-09-13 18:26] LABS: Erythrocyte Sedimentation Rate 5 MM/HR (0-20)
== END 2023-09-13 16:09 | disposition home or self-care (01) ==
LOC: HO.LAB 16:08
PROVIDERS: PCP Internal Medicine; Visit Provider Ophthalmology
DX: M31.6 Other giant cell arteritis (principal)
CPT/HCPCS: 36415; 85025; 85652; 86140

== ENCOUNTER 2024-01-25 13:12 | Emergency (ER) | payer OTHER, SELFPAY ==
--- NOTE | ~2024-01-25 | CT_ITS ---
EXAMINATION: CT HEAD WITHOUT CONTRAST CLINICAL INFORMATION: Sudden onset dizziness evaluate for stroke COMPARISON: MRI head from 11/27/2007 TECHNIQUE: Contiguous axial imaging was performed from the skull base to vertex without intravenous administration of contrast. This CT examination was performed using dose optimization techniques as appropriate, variously including the following: *Automated exposure control *Adjustment of mA and/or kV according to patient size (this includes techniques or standardized protocols for targeted exams where dose is matched to indication/reason for exam; i.e. extremities or head) *Use of iterative reconstruction technique DLP: 543 mGy-cm FINDINGS: There is no evidence of acute intracranial hemorrhage or territorial infarction. Chronic white matter small vessel ischemic changes. Chronic lacunar infarct along the right posterior ventricular horn. No abnormal mass effect or midline shift is seen. Bell to white matter differentiation is well preserved. No extra-axial fluid collections are identified. The ventricles are normal in size. There is no abnormal attenuation within the brain parenchyma. The osseous structures and soft tissues are normal. Mucoperiosteal thickening of the bilateral maxillary and ethmoid sinuses. The mastoid air cells and visualized portions of the paranasal sinuses are well aerated. CT/CT head/brain wo IV con IMPRESSION: 1. No acute intracranial pathology. 2. Chronic white matter small vessel ischemic changes. 3. Mucoperiosteal thickening of the bilateral maxillary and ethmoid sinuses.
[2024-01-25 13:21] VITALS: BP 162/94; BP 166/102; PULSE 77; RESP 16; TEMP 37.1; O2SAT 96; BMI 30.7
--- NOTE | 2024-01-25 13:37 | ECG_ITS ---
Test Reason : DIZZINESS Blood Pressure : / mmHG Vent. Rate : 076 BPM Atrial Rate : 076 BPM P-R Int : 136 ms QRS Dur : 074 ms QT Int : 402 ms P-R-T Axes : 042 -05 -51 degrees QTc Int : 452 ms Normal sinus rhythm ST & T wave abnormality, consider anterior ischemia Abnormal ECG When compared with ECG of 05-MAY-2017 12:15, Vent. rate has decreased BY [address] no longer depressed in Lateral leads Inverted T waves have replaced nonspecific T wave abnormality in Inferior leads Nonspecific T wave abnormality has replaced inverted T waves in Lateral leads Referred By: Vicente German Electronically Signed By:Heriberto Morrell
--- NOTE | 2024-01-25 13:39 | ED_ITS ---
HPI - Dizziness General Chief Complaint: Nausea/Vomiting/Diarrhea Stated Complaint: Vomiting with hypertension. Took med for BP. 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 She states she had a routine appointment to see her doctor. When she was in the office she did not feel well. She states she had a sudden onset of room spinning dizziness, she had nausea and several episodes of vomiting. Patient was then sent to the emergency department by ambulance for evaluation. Patient states that this is a 1st episode of vertigo like symptoms. She states that over the last several days she has not been ill. She denied fever, chills, chest pain, shortness of breath, dyspnea exertion, nausea, vomiting or diarrhea. She has not had any dark stools or bloody stools. She denied frequency urgency or dysuria. In the emergency department she complains of dizziness which is worse with minimal movement of her head. She also complains of nausea but has not had any episodes of vomiting. Related Data Home Medications Medication Instructions Recorded Confirmed albuterol sulfate 90 mcg/actuation 1 inh inhalation QID 01/20/21 09/25/22 aerosol inhaler bupropion HCl 300 mg 24 hr tablet, 300 mg PO QAM 01/20/21 09/25/22 extended release (Wellbutrin XL) hydrochlorothiazide 25 mg tablet 25 mg PO DAILY 01/20/21 09/25/22 hydroxyzine pamoate 50 mg capsule 50 mg PO Q6H 01/20/21 09/25/22 (Vistaril) lamotrigine 200 mg tablet 200 mg PO BID 01/20/21 09/25/22 (Lamictal) lisinopril 5 mg tablet 5 mg PO DAILY 01/20/21 09/25/22 pantoprazole 40 mg tablet,delayed 40 mg PO DAILY 01/20/21 09/25/22 release trazodone 50 mg tablet 50 mg PO BEDTIME PRN 01/20/21 09/25/22 Previous Rx's Medication Instructions Recorded oxycodone 10 mg tablet,crush 10 mg PO Q12H pain 3 days #6 tabs 09/28/21 resistant,extended release 12 hr (OxyContin) oxycodone-acetaminophen 5 mg-325 1 tab PO Q8H PRN pain 7 days #21 12/28/21 mg tablet tabs diltiazem HCl 120 mg 120 mg PO DAILY #90 caps 10/03/22 capsule,extended release 24 hr rosuvastatin 10 mg tablet (Crestor) 10 mg PO DAILY #90 tabs 10/02/23 meclizine 25 mg tablet (Dramamine 25 mg PO TID PRN dizziness #20 tabs 01/25/24 Less Drowsy) ondansetron 4 mg disintegrating 4 mg PO Q6-8H PRN nausea and 01/25/24 tablet vomiting #14 tabs Allergies Allergy/AdvReac Type Severity Reaction Status Date / Time No Known Allergies Allergy Verified 01/25/24 13:21 Review of Systems 2 Review of Systems: Yes all other systems are reviewed and are negative [facility] Past Medical History [facility] Narrative: Social history: She denies tobacco, alcohol and drug use. Medical History Hyperlipidemia IBS (irritable bowel syndrome) GERD (gastroesophageal reflux disease) HTN (hypertension) Sleep apnea Anemia Depression Hypothyroid Asthma Stroke Myocardial infarction Essential hypertension Cardiomyopathy PVC (premature ventricular contraction) Osteoarthritis of shoulders, bilateral Surgical History History of endometrial ablation History of tubal ligation History of sleeve gastrectomy (~08/2014) History of section Family History Family History Mother Heart disease Social History Social History Are you a primary client care specialist to a significant other at home: No Do you presently have visiting nurse or other home services: No Comment: 3 mths ago Patient Tobacco Use Status: Never used Tobacco Smoked in Last 30 Days: No Use of substances other than those prescribed or required for medical reasons: No Advance Directives: Yes Advance Directives Information Provided: No Advance Directives on File: No Patient : No Current occupational status: disabled 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 Physical Exam 2 Vital Signs: Vital Signs: Last Vital Signs Temp 98.4 F 01/25/24 16:33 Pulse 81 01/25/24 16:33 Resp 18 01/25/24 16:33 BP 147/85 H 01/25/24 16:33 Pulse Ox 97 01/25/24 16:33 O2 Del Method Room Air 01/25/24 13:21 BMI result Body Mass Index 30.7 Vital signs revealed elevated Exam: General: Awake, alert in no distress Head: Normocephalic, atraumatic EENT: PERRL, no nystagmus Lids normal, sclera normal, conjunctiva normal, nose normal , ears normal, throat without erythema or exudates Neck: Supple, no adenopathy Lung: breath sounds symmetric, no wheezing, rales or rhonchi Chest: symmetric movement, nontender Heart: regular rate and rhythm, normal S1, S2 no murmurs or rubs Abdomen: soft, non-tender, nondistended, normal bowel sounds Back: no vertebral tenderness, no CVAT Extremities: no deformities, moves all extremities symmetrically Neuro: Awake, alert, oriented, normal speech, cranial nerves intact, moves all extremities symmetrically, good fyjimh-jf-zczc-to-finger, normal rapid finger movement, normal heel to briseno. Patient has increased room spinning sensation with minimal position change. Psych: Pleasant, cooperative Medications Administered Discontinued Medications Generic Name Dose Route Start Last Admin Trade Name Freq PRN Reason Stop Dose Admin Sodium Chloride 1,000 mls @ 999 mls/hr 01/25/24 13:37 01/25/24 14:09 Ns IV 01/25/24 14:37 999 mls/hr .Q1H1M STA Administration Meclizine HCl 25 mg 01/25/24 13:37 01/25/24 14:10 Meclizine Hcl 25 Mg Tablet PO 01/25/24 13:38 25 mg ONCE STA Administration Ondansetron HCl 4 mg 01/25/24 13:37 01/25/24 14:09 Ondansetron Hcl 4 Mg/2 Ml Vial IVPUSH 01/25/24 13:38 4 mg ONCE ONE Administration Medical Decision Making Medical Decision Making MDM Narrative: 58-year-old female with a history of hyperlipidemia, IBS, GERD, hypertension, sleep apnea, anemia, depression, hypothyroidism, asthma, stroke, myocardial infarction, cardiomyopathy, PVCs presents emergency department for evaluation of sudden onset of dizziness that occurred while the patient was waiting for routine visit with her PCP. Patient had no prodromal symptoms, she describes the dizziness as a room spinning sensation associated with nausea vomiting vital signs revealed an elevated blood pressure of 160/94 otherwise unremarkable. Examination did reveal positional vertigo with no nystagmus and a nonfocal neurologic exam, normal cerebellar exam. Differential diagnosis: ?Includes but is not limited to positional vertigo, cerebellar stroke, myocardial infarction, myocardial ischemia, electrolyte abnormalities, anemia Following evaluation was ordered: CBC, CMP, magnesium, troponin, urinalysis, EKG, CT scan of the brain without IV contrast. Patient was initially treated with the following: IV insert, normal saline x1 L, meclizine 25 mg orally, Zofran 4 mg orally Course: 17:42 My interpretation patient's laboratory evaluation as follows: Elevated WBC 98729. H&H normal 14.3 and 44.1. CMP normal. Troponin below detectable limits. Urinalysis negative. CT scan of the brain revealed no acute process to explain the patient's dizziness. She does have chronic white matter small-vessel ischemic changes. EKG was unremarkable. Patient did feel better after the above treatment. Patient's symptoms are consistent with benign positional vertigo. Patient was prescribed meclizine and Zofran, she was given printed and verbal instructions and discharged home Admission/Observation Consideration of admission/observation: Escalation of care including admission/observation considered Lab Data MDM Lab Attestation statement: I reviewed the patient's lab results. 01/25/24 14:09 01/25/24 14:51 Labs: Lab Results 01/25/24 01/25/24 Range/Units 14:09 14:51 WBC 13.6 H (4.8-10.8) X10*3/uL RBC 4.89 (4.20-5.50) X10*6/uL Hgb 14.3 (12.0-16.0) g/dl Hct 44.3 (37.0-47.0) % MCV 90.6 (80.0-98.0) fL MCH 29.2 (27.0-33.0) pg MCHC 32.3 (31.0-35.0) g/dl RDW 12.5 (11.0-16.0) % Plt Count 215 D (160-400) X10*3/uL MPV 10.5 (9.4-12.3) fL Immature Gran % (Auto) 0.5 H (0.0-0.4) % Neut % (Auto) 82.9 H (45-73) % Lymph % (Auto) 7.6 L (20-40) % [place] % (Auto) 6.3 (2-11) % Eos % (Auto) 2.0 (0-4) % Baso % (Auto) 0.7 (0-2) % Lymph # (Auto) 1.0 L (1.2-4.9) X10*3/uL [place] # (Auto) 0.9 (0.1-1.2) X10*3/uL Eos # (Auto) 0.3 (0.0-0.4) X10*3/uL Baso # (Auto) 0.1 (0.0-0.2) X10*3/uL Abs Immat Gran (auto) 0.07 H (0.00-0.03) X10*3/uL Absolute Neuts (auto) 11.3 H (2.0-8.3) x10*3/uL Absolute Nucleated RBC 0.000 (0.0-0.012) X10*3/uL Nucleated RBC % (auto) 0.0 (0.0-0.2) /100WBC Sodium 142 (135-145) mmol/L Potassium 3.8 (3.3-5.1) mmol/L Chloride 112 H (96-108) mmol/L Carbon Dioxide 24 (22-29) mmol/L Anion Gap 10 L (12-20) BUN 13 (9-16) mg/dL Creatinine 0.83 (0.5-1.4) mg/dL Estim Creat Clear Calc 64.3 Estimated GFR > 60 Random Glucose 88 (60-115) mg/dL Calcium 8.3 L D (8.4-10.2) mg/dL Magnesium 2.0 (1.6-2.6) mg/dL Total Bilirubin 0.6 (0.0-1.0) mg/dL AST 17 (5-31) U/L ALT 15 (0-31) U/L Alkaline Phosphatase 107 (39-117) U/L Troponin I High Sens < 2.7 (<3.5-17.0) ng/L Total Protein 6.7 (6.5-8.0) g/dL Albumin 3.6 (3.5-5.0) g/dL Urine Color Yellow Urine Appearance Clear Urine pH 8.0 (5.0-9.0) Ur Specific [place] 1.015 (1.005-1.025) Urine Protein Negative (Neg-Trace) mg/dL Urine Glucose (UA) Negative (Negative) mg/dL Urine Ketones Negative (Negative) mg/dL Urine Blood Negative (Negative) Urine Nitrite Negative (Negative) Ur Leukocyte Esterase Negative (Negative) Independent Interpretation I performed an independent interpretation of an: EKG Interpretation: My independent interpretation patient's 12 EKG done at 14:04 hours is as follows: Normal sinus rhythm rate of 76, normal TN interval, QRS duration QTC interval, no ST segment elevation, no ST segment depression, inverted T-waves V1 through V3, no PACs, no PVCs Radiology Impression Discussion of test interpretation with radiology: I have reviewed the radiologist's reading. Radiologist Impression: CT head/brain wo IV con IMPRESSION: 1. No acute intracranial pathology. 2. Chronic white matter small vessel ischemic changes. 3. Mucoperiosteal thickening of the bilateral maxillary and ethmoid sinuses. Dictated By: Rolando Gonsales MD Independent Historian Clinical information obtained from an independent historian. History obtained from or confirmed by: Other (Son) Prescription Management I considered prescription management with: Other (Antiemetics, anti vertigo medications) Chronic Conditions Patient?s care impacted by: Hypertension and Other (Cardiomyopathy) Discharge Plan Discharge Clinical Impression: Nausea Benign paroxysmal positional vertigo Qualifiers: Laterality: unspecified laterality Qualified Code(s): H81.10 - Benign paroxysmal vertigo, unspecified ear Patient Disposition: Home, Self-Care Instructions: Benign Paroxysmal Positional Vertigo (ED) Additional Instructions: Your blood work was normal. Your EKG was unremarkable. The CT scan of your brain revealed no new findings to explain your dizziness which is reassuring. Your symptoms are consistent with positional vertigo caused by dysfunction of your balance mechanism in the bony part of your ears Take meclizine 25 mg pills, 1 pill 3 times a day for the next 3 days for dizziness then as needed for dizziness. ?This medication will make you sleepy. ?Do not drive or work while taking this medication. Take Zofran ODT 4 mg pills, 1 pill dissolved in your mouth every 8 hours as needed for nausea and vomiting. Continue taking medications as prescribed by your providers Follow-up with your doctor in 2 days. Please return to the emergency department if your symptoms get worse or if you develop any symptoms that are concerning to you. Prescriptions: New meclizine [Dramamine Less Drowsy] 25 mg tablet 25 mg PO TID PRN (Reason: dizziness) Qty: 20 0RF ondansetron 4 mg tablet,disintegrating 4 mg PO Q6-8H PRN (Reason: nausea and vomiting) Qty: 14 0RF No Action oxycodone-acetaminophen 5-325 mg tablet 1 tab PO Q8H PRN (Reason: pain) 7 Days Qty: 21 0RF Rx Instructions: Partial fill okay diltiazem HCl 120 mg capsule,extended release 24hr 120 mg PO DAILY Qty: 90 2RF rosuvastatin [Crestor] 10 mg tablet 10 mg PO DAILY Qty: 90 3RF oxycodone [OxyContin] 10 mg tablet,oral only,ext.rel.12 hr 10 mg PO Q12H 3 Days Qty: 6 0RF lisinopril 5 mg tablet 5 mg PO DAILY hydrochlorothiazide 25 mg tablet 25 mg PO DAILY lamotrigine [Lamictal] 200 mg tablet 200 mg PO BID bupropion HCl [Wellbutrin XL] 300 mg tablet extended release 24 hr 300 mg PO QAM hydroxyzine pamoate [Vistaril] 50 mg capsule 50 mg PO Q6H trazodone 50 mg tablet 50 mg PO BEDTIME PRN pantoprazole 40 mg tablet,delayed release (DR/EC) 40 mg PO DAILY albuterol sulfate 90 mcg/actuation HFA aerosol inhaler 1 inh inhalation QID Print Language: Panamanian
[2024-01-25] MEDS: ondansetron HCL 4 MG/2 ML VIAL IVPUSH (14:09)
[2024-01-25] MEDS: 0.9 % Sodium Chloride 1,000 ML 999 ML IV (14:09)
[2024-01-25] MEDS: Meclizine HCl 25 MG TABLET PO (14:10)
[2024-01-25 14:17] LABS: MANUAL DIFF FLAG NO
[2024-01-25 14:19] LABS: Appearance Urine Clear; Color Urine Yellow; Glucose Urine UA Negative (Negative); Leukocyte Esterase Urine Negative (Negative); Nitrite Urine Negative (Negative); Specific Gravity - Urine 1.015 (1.005-1.025); Urine Blood Negative (Negative); Urine Ketones Negative (Negative); Urine Protein Negative (Neg-Trace)
[2024-01-25 14:24] LABS: Basophils Absolute Auto 0.1 X10*3/uL (0.0-0.2); Basophils Percent Auto 0.7 % (0-2); Eosinophils Absolute Auto 0.3 X10*3/uL (0.0-0.4); Hematocrit 44.3 % (37.0-47.0); Hemoglobin 14.3 g/dl (12.0-16.0); Imm Gran Abs Auto 0.07 X10*3/uL (0.00-0.03); Imm Gran Pct Auto 0.5 % (0.0-0.4); Lymphocytes Percent Auto 7.6 % (20-40); Mean Corpuscular HGB Conc 32.3 g/dl (31.0-35.0); Mean Corpuscular Hemoglobin 29.2 pg (27.0-33.0); Mean Corpuscular Volume 90.6 fL (80.0-98.0); Mean Platelet Volume 10.5 fL (9.4-12.3); Monocytes Absolute Auto 0.9 X10*3/uL (0.1-1.2); Monocytes Percent Auto 6.3 % (2-11); Neutrophils Absolute Auto 11.3 x10*3/uL (2.0-8.3); Neutrophils Percent Auto 82.9 % (45-73); Platelet Count 215 X10*3/uL (160-400); Red Blood Count 4.89 X10*6/uL (4.20-5.50); Red Cell Distribution Width 12.5 % (11.0-16.0); White Blood Count 13.6 X10*3/uL (4.8-10.8)
[2024-01-25 14:44] LABS: Troponin-I High Sensitivity < 2.7 ng/L (<3.5-17.0)
[2024-01-25 15:19] LABS: Alanine Aminotransferase 15 U/L (0-31); Albumin Level 3.6 g/dL (3.5-5.0); Alkaline Phosphatase 107 U/L (39-117); Anion Gap 10 (12-20); Aspartate Amino Transferase 17 U/L (5-31); Bilirubin Total 0.6 mg/dL (0.0-1.0); Blood Urea Nitrogen 13 mg/dL (9-16); Calcium 8.3 mg/dL (8.4-10.2); Carbon Dioxide 24 mmol/L (22-29); Chloride 112 mmol/L (96-108); Creatinine Clr Calc Pharmacy 64.3; Estimated Glomerular Filt Rate > 60; Glucose Random 88 mg/dL (60-115); Potassium 3.8 mmol/L (3.3-5.1); Sodium 142 mmol/L (135-145); Total Protein 6.7 g/dL (6.5-8.0)
[2024-01-25 16:33] VITALS: BP 147/85; PULSE 81; RESP 18; TEMP 36.9; O2SAT 97
--- NOTE | 2024-01-25 16:34 | PC.NURSE ---
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
[2024-01-25 19:11] VITALS: BP 147/85; PULSE 81; RESP 14; TEMP 36.9; O2SAT 97
== END 2024-01-25 19:12 | disposition home or self-care (01) ==
PROVIDERS: Emergency Provider Emergency Medicine Emergency Medical Services; PCP Internal Medicine
DX: H81.10 Benign paroxysmal vertigo, unspecified ear (principal); R94.31 Abnormal electrocardiogram [ECG] [EKG]; R11.2 Nausea with vomiting, unspecified; I10 Essential (primary) hypertension; R19.7 Diarrhea, unspecified; Z79.899 Other long term (current) drug therapy
CPT/HCPCS: 36415; 70450; 80053; 81003; 83735; 84484; 85025; 93005; 96361; 96374; 99285; J2405

== ENCOUNTER → 2024-01-25 13:37 | Outpatient (BNV) | payer OTHER, SELFPAY | PROVIDERS: Emergency Provider Emergency Medicine Emergency Medical Services; PCP Internal Medicine; Visit Provider Internal Medicine Cardiovascular Disease | DX: I45.81 Long QT syndrome (principal) | CPT/HCPCS: 93010 ==

== ENCOUNTER 2024-01-30 12:50 | Outpatient (REF) | payer OTHER, SELFPAY ==
--- NOTE | ~2024-01-30 | XR_ITS ---
EXAMINATION: XR HAND, RIGHT CLINICAL INFORMATION: Right hand and finger pain status-post recent fall. COMPARISON: None available. TECHNIQUE: PA, lateral, and oblique views of the right hand. FINDINGS: Bony alignment and mineralization are normal. There is a positive ulnar variance. No fracture, dislocation or unusual degenerative change is seen. There is mild osteoarthritic change of the interphalangeal joint of the thumb and of the second distal interphalangeal joint. There is spurring of the articulation between the trapezium and navicular. No focal soft tissue swelling, gas or foreign body seen. XR/XR hand RT min 3V IMPRESSION: Mild osteoarthritic changes are seen of the right hand and wrist, as detailed. No fracture or dislocation is seen. There is no abnormal bone erosion.
--- NOTE | ~2024-01-30 | XR_ITS ---
EXAMINATION: XR SHOULDER, LEFT CLINICAL INFORMATION: Pain status-post fall. COMPARISON: Radiograph dated 12/26/2018 TECHNIQUE: AP external rotation, Grashey, scapular Y, and axillary views of the left shoulder. FINDINGS: Bony alignment and mineralization are normal. The glenohumeral joint is intact. The acromioclavicular and coracoclavicular intervals are normal. There is a small distal acromial undersurface osteophyte. No fracture or dislocation is seen. No focal soft tissue calcification or foreign body is seen. There is no left pneumothorax. XR/XR shoulder LT min 2V IMPRESSION: 1. No fracture or dislocation is seen. 2. Findings suggest possible mild left rotator cuff impingement. No brenna calcific tendinitis is noted.
== END 2024-01-30 12:51 | disposition home or self-care (01) ==
LOC: HO.HHCX 12:50
PROVIDERS: Visit Provider Internal Medicine
DX: M79.644 Pain in right finger(s) (principal); M25.512 Pain in left shoulder
CPT/HCPCS: 73030; 73130

== ENCOUNTER 2024-04-02 14:19 | Outpatient (REF) | payer OTHER, SELFPAY ==
[2024-04-02 17:01] LABS: Anion Gap 13 (12-20); Blood Urea Nitrogen 12 mg/dL (9-16); Calcium 9.7 mg/dL (8.4-10.2); Carbon Dioxide 29 mmol/L (22-29); Chloride 107 mmol/L (96-108); Estimated Glomerular Filt Rate > 60; Glucose Random 88 mg/dL (60-115); Potassium 4.3 mmol/L (3.3-5.1); Sodium 145 mmol/L (135-145)
== END 2024-04-02 14:20 | disposition home or self-care (01) ==
LOC: HO.HHCL 14:19
PROVIDERS: Visit Provider Internal Medicine
DX: I10 Essential (primary) hypertension (principal)
CPT/HCPCS: 36415; 80048

== ENCOUNTER 2024-09-23 17:53 | Outpatient (REF) | payer OTHER, SELFPAY ==
[2024-09-24 08:13] LABS: Bacterial Vaginosis PCR NEGATIVE (Negative); Candida Group PCR NOT DETECTED (Not Detect); Candida glab krusei PCR NOT DETECTED (Not Detect); Trichomonas vaginalis PCR NOT DETECTED (Not Detect)
[2024-09-24 11:02] LABS: HPV 16,18/45 See PAP report
== END 2024-09-23 17:54 | disposition home or self-care (01) ==
LOC: HO.HHCLNP 17:53
PROVIDERS: Visit Provider Advanced Practice Midwife
DX: Z12.4 Encounter for screening for malignant neoplasm of cervix (principal); Z11.51 Encounter for screening for human papillomavirus (HPV); R82.90 Unspecified abnormal findings in urine; N89.8 Other specified noninflammatory disorders of vagina
CPT/HCPCS: 0352U; 87086; 87088; 87186; 87624; 88175

== ENCOUNTER 2024-09-24 13:57 | Outpatient (AMB) | payer OTHER, SELFPAY ==
[2024-09-24 13:59] VITALS: BP 136/90; PULSE 86; BMI 36.8
--- NOTE | 2024-09-24 13:59 | MHC.OFFVIS ---
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: Yes Machine Tool Technician Instructor Name: [id number] Harley Accompanied by: Self / Same As Patient Allergies No Known Allergies Allergy (Verified 01/25/24 13:21) Medication List - Last Reconciled 09/24/24 by Josse Parrish MD albuterol sulfate 90 mcg/actuation 1 inh inhalation QID bupropion HCl XL (Wellbutrin XL) 300 mg PO QAM diltiazem HCl CD 120 mg PO DAILY hydrochlorothiazide 25 mg PO DAILY hydroxyzine pamoate (Vistaril) 50 mg PO Q6H lamotrigine (Lamictal) 200 mg PO BID lisinopril 5 mg PO DAILY meclizine (Dramamine Less Drowsy) 25 mg PO TID PRN ondansetron 4 mg PO Q6-8H PRN pantoprazole 40 mg PO DAILY rosuvastatin (Crestor) 10 mg PO DAILY trazodone 50 mg PO BEDTIME PRN HPI Comments Details: Ramona returns for follow-up. She has a history of mild cardiomyopathy but recent LVEFs within normal limits. She underwent gastric bypass surgery in 2017. Perioperatively, she had a lot of PVCs including bigeminy. Since that time, she has been mostly doing okay. She was getting intermittent chest pains. For this reason, she underwent ischemic workup including a stress test and coronary CTA. Since last seen, she has again describing various symptoms. She states that she is getting short of breath with activity. She also gets heart racing type sensations. 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 [facility] Medical History Hyperlipidemia IBS (irritable bowel syndrome) GERD (gastroesophageal reflux disease) HTN (hypertension) Sleep apnea Anemia Depression Hypothyroid Asthma Stroke Myocardial infarction Essential hypertension Cardiomyopathy PVC (premature ventricular contraction) Osteoarthritis of shoulders, bilateral Surgical History History of endometrial ablation History of tubal ligation History of sleeve gastrectomy (~08/2014) History of section Family History Mother Heart disease Social History (Updated 09/24/24 @ 14:03 by Estelita Fletcher CMA) Are you a primary care attendant to a significant other at home: No Do you presently have visiting nurse or other home services: No Alcohol intake: never Comment: 3 mths ago Patient Tobacco Use Status: Never used Tobacco Current occupational status: disabled 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 Review of Systems Const Denies chills, Denies fatigue, Denies fever(s), Denies weight gain and Denies weight loss ENT Denies dizziness Card Denies chest pain, Denies leg edema, Denies lightheadedness, Denies palpitations, Reports dyspnea on exertion, Denies orthopnea and Denies other Resp Denies cough and Reports dyspnea on exertion GI Denies hematochezia and Denies change in stool character Musc Denies abnormal gait, Denies muscle weakness, Denies numbness, Denies radiating pain into limb and Denies tingling Neuro Denies abnormal gait, Denies dizziness, Denies numbness and Denies tingling Endo Denies fatigue and Denies palpitations Physical Exam Vital Signs: Last Vital Signs Pulse 86 09/24/24 13:59 BP 136/90 H 09/24/24 13:59 BMI result Body Mass Index 36.8 Const General: comfortable and no acute distress Orientation/consciousness: patient oriented x3 HEENT Other: Unremarkable Head: Yes normal to inspection Neck Neck: Yes normal visual inspection Chest Chest palpation & inspection: normal inspection of the chest Resp Auscultation: clear to auscultation bilaterally Cardio Palpation: normal PMI Heart sounds: S1 normal heart sound present, S2 normal heart sound present, no gallops, no murmurs and no rubs GI Palpation (GI): Soft to palpation Back/Spine/Pelvis Other: unremarkable Skin General skin exam: no rashes or lesions noted Neuro General: patient oriented x3 Extrem General: Yes normal to inspection Psych Mental Status: mental status grossly normal Assessment & Plan Assessment & Plan (1) Atherosclerotic cardiovascular disease: Code(s): I25.10 - Atherosclerotic heart disease of [place] coronary artery without angina pectoris Category: Medical Plan: Lexiscan stress test shows a small defect in the inferolateral wall near apex with reversible and fixed components but with normal contractility. Coronary CTA with mild calcification in the left main and LAD but otherwise normal coronaries. Hence, suspect noncardiac chest pains. She is already on statins for the mild CAD. (2) PVC (premature ventricular contraction): Code(s): I49.3 - Ventricular premature depolarization Category: Medical Plan: Holter shows minimal burden of PVCs. We will recheck as she is again describing palpitations. (3) Cardiomyopathy: Code(s): I42.9 - Cardiomyopathy, unspecified Category: Medical Qualifiers: Cardiomyopathy type: other Qualified Code(s): I42.8 - Other cardiomyopathies Plan: Based on a prior echocardiogram from [facility] in 2013, her LVEF was 40-45%. There was global hypokinesis. Most recent echocardiogram from 2020 shows LVEF of 55-60%. Hence recovered EF but due to shortness of breath, check echocardiogram. (4) Essential hypertension: Code(s): I10 - Essential (primary) hypertension Category: Medical Plan: Remains on lisinopril, hydrochlorothiazide. Borderline high blood pressure. Orders: Orders CA echo transthoracic complete Today I42.8 - Other cardiomyopathies ECG 3 day holter monitor Today I49.3 - Ventricular premature depolarization Coding Level of Care Code Est Pt Level 4 (55531) Diagnoses Atherosclerotic cardiovascular disease I25.10 PVC (premature ventricular contraction) I49.3 Other cardiomyopathy I42.8 Cardiomyopathy type: other Essential hypertension I10
== END 2024-09-24 14:28 | disposition home or self-care (01) ==
PROVIDERS: PCP Internal Medicine; Visit Provider Internal Medicine
DX: I25.10 Atherosclerotic heart disease of native coronary artery without angina pectoris (principal); I49.3 Ventricular premature depolarization; I42.8 Other cardiomyopathies; I10 Essential (primary) hypertension
CPT/HCPCS: 99214

== ENCOUNTER → 2024-09-24 13:57 | Outpatient (BNVA) | payer OTHER, SELFPAY | PROVIDERS: PCP Internal Medicine; Visit Provider Internal Medicine | DX: I25.10 Atherosclerotic heart disease of native coronary artery without angina pectoris (principal); I49.3 Ventricular premature depolarization; I42.8 Other cardiomyopathies; I10 Essential (primary) hypertension | CPT/HCPCS: 99212 ==

== ENCOUNTER 2024-11-04 11:31 | Outpatient (REF) | payer OTHER, SELFPAY ==
--- NOTE | ~2024-11-04 | MM_ITS ---
EXAMINATION: MM SCREENING DIGITAL BREAST TOMOSYNTHESIS, BILATERAL CLINICAL INFORMATION: Screening. Asymptomatic. COMPARISON: Mammography: Comparison is made with available priors TECHNIQUE: Digital breast mammography with tomosynthesis is performed in both the craniocaudal and mediolateral oblique views along with computer-aided detection (CAD). FINDINGS: There are scattered areas of fibroglandular density (ACR BI-RADS breast composition Category b). There are no significant masses, abnormal calcifications, or other abnormalities. MM/MM tomosynthesis screening BI IMPRESSION: No mammographic evidence of malignancy. ASSESSMENT: BI-RADS BI-RADS 1 - Negative RECOMMENDATION: Routine annual mammography screening. 1 year F/U This examination should not preclude the clinical evaluation of a suspicious palpable abnormality. This patient's information was entered into a reminder system with a target due date for their next mammogram. Electronically signed by: Kirsten Simmons DO 11/10/2024 04:05 PM CONY
--- OUTSIDE RECORDS SUMMARY | 2024-11-04 13:17 | XMS_ITS | Patient Health Record ---
Author Organization [facility] Address [address] [place] [address] Care Team Providers Care Header Setup Operator Name Role Phone Roseanne BUTT, Tova Primary Care Provider Unavail able Genaro Niño Jr Unavailable ALLERGIES No Known Allergies REASON FOR REFERRAL No Information MEDICATIONS Medication SIG (Take, Route, Frequency, Duration) Notes Start Date End Date Status Lisinopril-hydroCHLOROthiazi de 20-25 MG TAKE 1 TABLET BY MOUTH EVERY DAY Oral for 30 Active hydrOXYzine HCl 50 MG 1 tablet as needed Orally every 6 hrs Active Acetaminophen Extra Strength 500 MG TAKE 2 TABLETS BY MOUTH EVERY 6 HOURS NEEDED Oral for 11 Active Sertraline HCl 50 MG 1 tablet Orally Onc e a day for 30 day(s) Active Cyclobenzaprine HCl 5 MG TAKE 1 TABLET B Y MOUTH EVERY 2 DAYS Oral for 30 Active risperiDONE 1 MG 1 tablet Orally Once a day for 30 day(s) Active Dicyclomine HCl 10 MG 1 tablet Orally 2- 4 times a day 08/11/2021 Active MiraLax (colon prep) 17 GM/SCOOP mixed with Gatorade or Crystal Light Orally begin at 5:00 p.m. the day before the procedure for 1 day 03/19/2023 Active ProAir HFA Active Flovent HFA 220 MCG/ACT INHALE 1 PUFF BY MOUTH TWICE DAILY Inhalation for 60 Active Pantoprazole Sodium 40 MG TAKE 1 TABLET BY MOUTH EVERY DAY Oral for 30 Active dilTIAZem HCl ER Coated Bead s 120 MG TAKE 1 CAPSULE BY MOUTH EVERY DAY Oral for 30 Active Acetaminophen-Codeine #3 300 -30 MG 1 tablet as needed Orally every 6 hrs Active Benzonatate 100 MG 1 capsule as needed Orally Three times a day Active hydroCHLOROthiazide 25 MG 1 tablet in morning Orally Once a day for 30 day(s) Active IMMUNIZATIONS Vaccine Route Administration Date Status Comme nts Influenza Unknown 07/29/2021 Administered Influenza Unknown 03/19/2023 Refused SOCIAL HISTORY Sex Assigned At : Social History Observation Description Sex Assigned At Unknown PROBLEMS Problem Type ICD Code Onset Dates Problem Status W/U Status Risk SNOMED Code Notes Problem Colon cancer screening (Z12.11) Active confirmed 955554813 Problem 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) Active confirmed 207345249 Problem Generalized abdominal pain (R10.84) Active confirmed 177749447 Problem Gastroesophageal reflux disease without esophagitis (K21.9) Active confirmed 182041124 Problem Shultz esophagus (K22.70) Active confirmed Shultz esophagus (449873184) Problem Other irritable bowel syndrome (K58.8) Active confirmed 03494598 PLAN OF TREATMENT Future Test Test Name Order Date COLONOSCOPY 06/05/2012 UPPER GI ENDOSCOPY 03/19/2023 COLONOSCOPY 03/19/2023 Insurance Providers Payer Name Payer Address Payer Phone Subscriber Number Group Number Insured Name Patient Relationship to Insured Coverage Start Date Coverage End Date MEDICARE OF [place] [address] [place] [id number] JUSTIN DOROTHY NAYA Self - patient is the insured MEDICAID OF [facility] [address] [place] [address] [id number] JUSTIN DE LA CRUZ, NAYA Self - patient is the insured MEDICAL (GENERAL) HISTORY Medical History History ICD Code asthma hypothyroidism depression uterine fibroids anemia sleep apnea hypertension gastroesophageal reflux dise ase, EGD 09/16, focal intestinal metaplasia consistent with Shultz's. secondary hyperparathyroidism mild heart attack 2007 stroke 2000 irritable bowel syndrome hyperlipidemia Colonoscopy 07/10, and internal hemorrhoi ds, ten-year followup Surgical History Surgery Date(Month/Year) section uterine ablation Sleeve gastrectomy, converted to laparos copic gastric bypass 05/14
== END 2024-11-04 11:32 | disposition home or self-care (01) ==
LOC: HO.MAMMO 11:31
PROVIDERS: PCP Internal Medicine; Visit Provider Advanced Practice Midwife
DX: Z12.31 Encounter for screening mammogram for malignant neoplasm of breast (principal)
CPT/HCPCS: 77063; 77067

== ENCOUNTER → 2024-11-04 13:00 | Outpatient (BNV) | payer OTHER, SELFPAY | PROVIDERS: PCP Internal Medicine; Visit Provider Internal Medicine | DX: Z12.31 Encounter for screening mammogram for malignant neoplasm of breast (principal) | CPT/HCPCS: 77063; 77067 ==

== ENCOUNTER → 2024-11-06 13:00 | Outpatient (REF) | payer OTHER, SELFPAY ==
--- NOTE | 2024-11-06 13:02 | CA_ITS ---
Transthoracic Echocardiogram Patient (Last, First, Middle): Ramona Olivia G Gender: Female Date of : 1965 Age: 59 Procedure Date: 11/06/2024 Procedure Type: Transthoracic Echocardiogram Location: OP Height: 137.16 cm Weight: 70.76 kg BSA: 1.56 m2 Heart Rate: 72 bpm BP: 132 / 88 mmHg Customer Consultant: TO Referring MD: Josse Parrish MD Symptoms: I42.8 - Other cardiomyopathies Study Quality: Adequate ECG Rhythm: Sinus Conclusions: - The left ventricular systolic function is normal. The calculated ejection fraction is 55% by biplane method. - No obvious valvular pathology seen on this study. Findings Left Ventricle Normal left ventricular cavity size. There is mildly increased left ventricular wall thickness. The left ventricular systolic function is normal. The calculated ejection fraction is 55% by biplane method. There is no evidence of regional wall motion abnormalities. Diastolic function is normal for age. Right Ventricle Normal right ventricular cavity size and systolic function. Atria Both atria are normal in size. Aortic Valve There is a normal trileaflet aortic valve. There is no aortic valve stenosis. There is no aortic valve regurgitation. Mitral Valve The mitral valve appears normal. There is no mitral valve regurgitation. There is no mitral valve stenosis. Pulmonic Valve The pulmonic valve is likely normal. Tricuspid Valve There is trace tricuspid valve regurgitation. There is no evidence of pulmonary hypertension. Great Vessels Top normal ascending aortic size at 3.7 cm. Venous The inferior vena cava is normal in size and collapses greater than 50% with inspiration. Pericardium/Pleural There is no evidence of pericardial effusion. Prior Study Comparison No significant change compared to prior study dated: 01/24/2021. Recommendations, Care & Conclusions No obvious valvular pathology seen on this study. Measurements 2D Linear Measurements IVSd: 1.07 0.6-0.9/0.6-1.0 cm LVIDd: 4.66 3.9-5.3/4.2-5.9 cm LVIDd Index: 2.99 2.4-3.2/2.2-3.1 cm/m2 LVIDs: 3.36 2.0-3.6 cm LVPWd: 1.05 0.7-1.1 cm LA Diam: 3.00 2.7-3.8/3.0-4.0 cm LAIDs Index: 1.92 1.5-2.3 cm/m2 LV Mass: 218.89 67-162/88-224 g LV Mass Index: 140.31 43-95/49-115 g/m2 LVOT Diam: 1.90 3.0+(-)1.3 cm 2D Systolic Function EF 4C: 56.90 >55% EF 2C: 54.30 >55% EF BiP: 55.30 >55% Mitral Valve MV Pk E: 0.47 MV PK A: 0.72 MV Decel Time: 131.00 E/A: 0.70 E'Lateral: 6.42 E'Medial: 4.03 E/E' Med: 11.70 E/E' Lat: 7.30 PHT: 38.00 MVA PHT: 5.79 Decel Worth: 3.61 Aortic Valve AoV Pk Jefferson: 1.35 AoV Mn Jefferson: 0.95 AoV VTI: 0.24 AoV Pk Grad: 7.00 Aov Mn Grad: 4.00 ДМИТРИЙ Cont.VTI: 1.93 LVOT LVOT Pk Jefferson: 0.79 LVOT Mn Jefferson: 0.55 LVOT VTI: 0.17 LVOT Pk Grad: 2.00 LVOT Mn Grad: 1.00 LVOT Diam: 1.90 LVOT Area: 2.84 Diastolic Function MV Pk E: 0.47 MV Pk A: 0.72 E/A: 0.70 E'Medial: 4.03 E/E' Med: 11.70 E' Laterial: 6.42 E/E' Lat: 7.30 Right Ventricle TAPSE (mm): 23.60 TVS' Jefferson: 10.80 Tricuspid Valve TR Pk Jefferson: 1.78 TR Pk Grad: 13.00 RA Press: 3.00 RVSP: 16.00 Great Vessels Aorta Sinus of Valsalva: 3.04 2.0-3.5 cm Ao Asc: 3.70 2.1-3.4 cm Ao Arch: 2.40 Updated in Other Vendor System with Status of Final Josse Parrish MD electronically signed on 11/08/2024 1:17:01 PM with status of Final
--- OUTSIDE RECORDS SUMMARY | 2024-11-06 14:22 | XMS_ITS | Patient Health Record ---
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) Active confirmed 120130170 Problem Generalized abdominal pain (R10.84) Active confirmed 355009961 Problem Gastroesophageal reflux disease without esophagitis (K21.9) Active confirmed 029498852 Problem Shultz esophagus (K22.70) Active confirmed Shultz esophagus (456272342) Problem Other irritable bowel syndrome (K58.8) Active confirmed 59115380 PLAN OF TREATMENT Future Test Test Name Order Date COLONOSCOPY 06/05/2012 UPPER GI ENDOSCOPY 03/19/2023 COLONOSCOPY 03/19/2023 Insurance Providers Payer Name Payer Address Payer Phone Subscriber Number Group Number Insured Name Patient Relationship to Insured Coverage Start Date Coverage End Date MED[place]ARE OF [place] [address] [place] [id number] [phone] [id number] JUSTIN DOROTHY NAYA Self - patient is the insured MEDICAID OF [facility] [address] [place] [phone] [id number] JUSTIN DE LA CRUZ, NAYA Self - [...]
== END ==
LOC: HO.CARD 13:00
PROVIDERS: PCP Internal Medicine; Visit Provider Internal Medicine
DX: I49.3 Ventricular premature depolarization (principal); I42.8 Other cardiomyopathies
CPT/HCPCS: 93242; 93306

== ENCOUNTER → 2024-11-06 13:02 | Outpatient (BNV) | payer OTHER, SELFPAY | PROVIDERS: PCP Internal Medicine; Visit Provider Internal Medicine | DX: I42.8 Other cardiomyopathies (principal) | CPT/HCPCS: 93306 ==

== ENCOUNTER 2024-11-13 11:42 | Outpatient (REF) | payer OTHER, SELFPAY ==
[2024-11-13 13:37] LABS: Anion Gap 12 (12-20); Blood Urea Nitrogen 16 mg/dL (9-16); Calcium 9.2 mg/dL (8.4-10.2); Carbon Dioxide 30 mmol/L (22-29); Chloride 109 mmol/L (96-108); Cholesterol 142 mg/dL (<200); Estimated Glomerular Filt Rate > 60; Glucose Random 82 mg/dL (60-115); HDL Cholesterol 52 mg/dL (>40); LDL Cholesterol Calculated 72 mg/dL (<100); Potassium 4.8 mmol/L (3.3-5.1); Sodium 146 mmol/L (135-145); Triglycerides 90 mg/dL (<150)
[2024-11-13 13:48] LABS: Vitamin D 25-OH Total 12.2 ng/mL (>30)
[2024-11-13 13:57] LABS: Reflex LDLD? No
== END 2024-11-13 11:43 | disposition home or self-care (01) ==
LOC: HO.HHCL 11:42
PROVIDERS: Visit Provider Internal Medicine
DX: I10 Essential (primary) hypertension (principal); E66.01 Morbid (severe) obesity due to excess calories
CPT/HCPCS: 36415; 80048; 80061; 82306

== ENCOUNTER 2024-12-19 12:20 | Outpatient (AMB) | payer OTHER, SELFPAY ==
--- OUTSIDE RECORDS SUMMARY | 2024-12-19 13:01 | XMS_ITS | Encounter Summary ---
Author Organization [employer] Address [address] [facility] [address]t [place] [address] Care Team Providers Care Parking Lot Manager Name Role Phone Tova Cronin MD Primary Care Provider + Yeison Olivia PharmD Unavailable [phone] Encounter Details Date Type Department Care Team ([facility] Contact Info) Description 11/08/2022 Orders Only [facility]INE [address] [place] [address] [phone] Tova Cronin MD [address] [place] [address] [phone] Moderate persistent asthma without complication (Primary Dx); Mild intermittent asthma without complication Social History Tobacco Use Types Packs/Day Years Used Date Smoking Tobacco: Never Assessed Comments Unknown Sex and Gender Information Value Date Recorded Sex Assigned at Female 08/28/2022 10:17 AM EDT Legal Sex Female 10:17 AM EDT Gender Identity Female 08/28/2022 10:17 AM EDT Sexual Orientation Choose not to disclose 2021 10:17 AM EDT COVID-19 Exposure Response Date Recorded In the last 10 days, have yo u been in contact with someone who was confirmed or suspected to have Coronavirus/COVID-19? No / Unsure 10/11/2022 9:36 AM EST documented as of this encounter Plan of Treatment Upcoming Encounters Date Type Department Care Team (Late Contact Info) Description 01/13/2025 11:45 AM EDT Office Visit [facility] [address] [place] [phone] Tova Cronin MD [address] [place] [phone] documented as of this encounter Visit Diagnoses Diagnosis Moderate persistent asthma without complication- Primary Mild intermittent asthma without complication documented in this encounter Care Teams Parking Lot Manager Relationship Specialty Start Date End Date Tova Cronin MD [address] [place] [address] [phone] PCP - General Family Medicine 10/13/19 Yeison Olivia, KavitaD [address] [place] [address] [phone] Pharmacist Internal Medicine 11/27/22 documented as of this encounter
--- OUTSIDE RECORDS SUMMARY | 2024-12-19 13:01 | XMS_ITS | Encounter Summary ---
Author Organization [employer] Address [address] [facility] [address] [place] [address] Care Team Providers Care Financial Aids Officer Name Role Phone Tova Cronin MD Primary Care Provider + Yeison Olivia PharmD Unavailable [phone] Encounter Details Date Type Department Care Team (Late st Contact Info) Description 10/13/2022 [facility] Health Information Management [address] [place], [place] [phone] Tova Cronin MD [address] [place], [place] [phone] Social History Tobacco Use Types Packs/Day Years [...] Encounters Date Type Department Care Team (Late st Contact Info) Description 01/13/2025 11:45 AM EDT Office Visit [facility] [address] [place], [place] [phone] Tova Cronin MD [address] [place] [address] documented as of this encounter Visit Diagnoses Not on filedocumented in this encounter Care Teams Financial Aids Officer Relationship Specialty Start Date End Date Tova Cronin MD [address] [place] [phone] PCP - General Family Medicine 10/13/19 Yeison Olivia, Zoran [address] [place] [phone] Pharmacist Internal Medicine 11/27/22 documented as of this encounter
--- OUTSIDE RECORDS SUMMARY | 2024-12-19 13:01 | XMS_ITS | Patient Health Record ---
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) Active confirmed 681655338 Problem Generalized abdominal pain (R10.84) Active confirmed 780577552 Problem Gastroesophageal reflux disease without esophagitis (K21.9) Active confirmed 777821206 Problem Shultz esophagus (K22.70) Active confirmed Shultz esophagus (621624614) Problem Other irritable bowel syndrome (K58.8) Active confirmed 96883929 PLAN OF TREATMENT Future Test Test Name Order Date COLONOSCOPY 06/05/2012 UPPER GI ENDOSCOPY 03/19/2023 COLONOSCOPY 03/19/2023 Insurance Providers Payer Name Payer Address Payer Phone Subscriber Number Group Number Insured Name Patient Relationship to Insured Coverage Start Date Coverage End Date MEDICARE OF [place] [address] [place] [id number] JUSTIN DOROTHY NAYA Self - patient is the insured MEDICAID OF [facility] [address] [place] [address] [id number] JUSTIN DE LA CRUZ, NAYA Self - [...]
--- OUTSIDE RECORDS SUMMARY | 2024-12-19 13:01 | XMS_ITS | Encounter Summary ---
Author Organization [employer] Address [address] 7[address] [place] [address] Care Team Providers Care Opto Mechanical Engineer Name Role Phone Tova Cronin MD Primary Care Provider + Yeison Olivia PharmD Unavailable [phone] Reason for Visit * Reason Onset Date Comments Error 02/12/2024 Encounter Details Date Type Department Care Team (Late st Contact Info) Description 02/12/2024 Telephone [facility] [address] [place], [place] [phone] Tova Cronin MD [address] [place], [place] [phone] Error Social History Tobacco Use Types Packs/Day Years Used Date Smoking Tobacco: Never Smokeless Tobacco: Never Alcohol Use Standard Drinks/Week Comments Never 0 (1 standard drink = 0.6 oz pur e alcohol) Depression Answer Date Recorded Patient Health Questionnaire-9 Score 18 01/25/2024 Patient Health Questionnaire-9 Score 18 01/25/2024 Last PHQ-9: Questionnaire Data Not on file 0 01/25/2024 Housing Stability Answer Date Recorded What is your housing situation today? I have eloisa kiran 08/22/[address] you li ve. Do you have problems with any of the following? None of the above 08/22/2023 Food Insecurity Answer Date Recorded Within the past 12 months, y ou worried that your food would run out before you got money to buy more: Never True 08/22/2023 Within the past 12 months,th e food you bought just didn't last and you didn't have enough money to get more: Never True Transportation Answer Date Recorded In the past 12 months, has l ack of transportation kept you from medical appts, meetings, work or from getting things needed for daily living? Yes, it has kept me from medical appointments or getting medications. 11/23/2023 Utilities Answer Date Recorded In the past 12 months, has t he electric, gas, oil or water company threatened to shut off services in your home? No 08/22/2023 Depression Answer Date Recorded Patient Health Questionnaire-2 Score 6 01/25/2024 Comments Unknown Sex and Gender Information Value Date Recorded Sex Assigned at Female 08/28/2022 10:17 AM EDT Legal Sex Female 10:17 AM EDT Gender Identity Female 08/28/2022 10:17 AM EDT Sexual Orientation Choose not to disclose 2021 10:17 AM EDT documented as of this encounter Plan of Treatment Upcoming Encounters Date Type Department Care Team (Late st Contact Info) Description 01/13/2025 11:45 AM EDT Office Visit [facility] [address] [place] [phone] Tova Cronin MD [address] [place] [phone] documented as of this encounter Goals Goal Patient Goal Type Associated Problems Recent Progress Patient-Stated? Author Blood Pressure < 140/90 Blood Pressure 130/95( 025 11:23 AM EST) No Yeison Olivia PharmD documented as of this encounter Visit Diagnoses Not on filedocumented in this encounter Additional Health Concerns Assessment Noted Time PHQ-9 Depression Total Score: 18 024 11:25 AM EDT documented as of this encounter Care Teams Opto Mechanical Engineer Relationship Specialty Start Date End Date Tova Cronin MD [address] [place] [address] [phone] PCP - General Family Medicine 10/13/19 Yeison Olivia PharmD [address] [place] [address] [phone] Pharmacist Internal Medicine 11/27/22 documented as of this encounter
--- OUTSIDE RECORDS SUMMARY | 2024-12-19 13:01 | XMS_ITS | Clinical Summary ---
Author Organization [facility] Address [address] [place] [address] Care Team Providers Care Ore Bridge Operator Name Role Phone Tova rConin MD Primary Care Provider [phone] Surgical History Surgery Date Site/Laterality Comments OTHER SURGICAL HISTORY 10/2023 Right PROCEDURE: [place] SALPINGO-OOPHORECTOMY COMPL/PRTL UNI/BI SPX Social History Tobacco Use Types Packs/Day Years Used Date Smoking Tobacco: Never Smokeless Tobacco: Never Alcohol Use Standard Drinks/Week Comments Not Currently 0 (1 standard drink = 0.6 oz pur e alcohol) Comments Unknown Sex and Gender Information Value Date Recorded Sex Assigned at Not on file Legal Sex Female 1:00 AM EST Gender Identity Not on file Sexual Orientation Not on file Obstetrics History Last Filed Vital Signs Vital Sign Reading Time Taken Comments Blood Pressure 142/85 12/13/2023 2:07 PM EST Pulse 70 12/13/2023 2:07 PM EST Temperature - - Respiratory Rate - - Oxygen Saturation - - Inhaled Oxygen Concentration - - Weight 66.7 kg (147 lb) 12/13/2023 2:07 PM EST Height - - Body Mass Index - - Plan of Treatment Health Maintenance Due Date Last Done Comments Breast Cancer Screening 1965 DTaP,Tdap,and Td Vaccines (1 - Tdap) 1983 Cervical Cancer Screening: P ap Smear 1985 Pneumococcal Vaccine: 50+ Ye ars (1 of 1 - PCV) 2014 Zoster Vaccines (1 of 2) 2014 Colorectal Cancer Screening: Colonoscopy 10/01/2022 Depression Screening 10/01/2022 HIV Screening 10/01/2022 Hepatitis C Screening 10/01/2022 Social Influencers of Health Screening 10/01/2022 COVID-19 Vaccine ( - 2023-2 5 season) 2024 Influenza Vaccine (#1) 2024 RSV Immunization Patients 60 + Years Old (1 - 1-dose 75+ series) 2039 HIB Vaccines Aged Out No longer eligi ble based on patient's age to complete this topic HPV Vaccines Aged Out No longer eligi ble based on patient's age to complete this topic Hepatitis A Vaccines Aged Out No long er eligible based on patient's age to complete this topic Hepatitis B Vaccines Aged Out No long er eligible based on patient's age to complete this topic IPV Vaccines Aged Out No longer eligi ble based on patient's age to complete this topic MMR Vaccines Aged Out No longer eligi ble based on patient's age to complete this topic Meningococcal ACWY Vaccine Aged Out N o longer eligible based on patient's age to complete this topic Meningococcal B Vacine Aged Out No lo nger eligible based on patient's age to complete this topic Pneumococcal Vaccine: Pediat rics (0 to 5 Years) and At-Risk Patients (6 to 64 Years) Aged Out No longer eligible b ased on patient's age to complete this topic RSV Immunization Patients Un zakia 20 months Aged Out No longer eligible b ased on patient's age to complete this topic Varicella Vaccines Aged Out No longer eligible based on patient's age to complete this topic Advance Directives Documents on File Type Date Recorded Patient Cotton Picking Machine Operator Expl anation Health Care Decision (hx) 11/21/2023 AD BOWEN DIRECTIVE Health Care Decision (hx) 11/21/2023 AD BOWEN DIRECTIVE Care Teams Ore Bridge Operator Relationship Specialty Start Date End Date Tova Cronin MD [address] [place] [phone] PCP - General 12/13/23
--- OUTSIDE RECORDS SUMMARY | 2024-12-19 13:02 | XMS_ITS | Encounter Summary ---
Author Organization [employer] Address [address] [facility] [facility] [address] 7t [place] [address] Care Team Providers Care Collection Systems Consultant Name Role Phone Tova Cronin MD Primary Care Provider + Yeison Olivia PharmD Unavailable [phone] Reason for Visit * Reason Onset Date Comments Med Refill 05/04/2023 Encounter Details Date Type Department Care Team (Late st Contact Info) Description 05/04/2023 Telephone [facility] [address] [place], [place] [phone] Tova Cronin MD [address] [place], [place] [phone] Med Refill Social History Tobacco Use Types Packs/Day Years [...] suspected to have Coronavirus/COVID-19? No / Unsure 04/26/2023 10:26 AM EDT documented as of this encounter Miscellaneous Notes * Telephone Encounter - Rocio Kuhn LPN - 05/04/2023 9:28 AM EDT Med is not pended as unclear if Patient to continue this dose? Please review. * Telephone Encounter - Karine Vineet - 05/04/2023 9:23 AM EDT Tc from pharmacy requesting medication refill on ergocalciferol (Vitamin D-2) 1.25 MG (20693 UT) capsule documented in this encounter Plan of Treatment Upcoming Encounters Date Type Department Care Team (Late st Contact Info) Description 01/13/2025 11:45 AM EDT Office Visit [facility] MED[facility] [address] [place] [phone] Tova Cronin MD [address] [place] [phone] documented as of this encounter Goals Goal Patient Goal Type Associated Problems Recent Progress Patient-Stated? Author Blood Pressure < 140/90 Blood Pressure 130/95( 025 11:23 AM EST) No Yeison Olivia PharmD documented as of this encounter Visit Diagnoses Not on filedocumented in this encounter Additional Health Concerns Assessment Noted Time PHQ-9 Depression Total Score: 10 023 9:57 AM EST documented as of this encounter Care Teams Collection Systems Consultant Relationship Specialty Start Date End Date Tova Cronin MD [address] [place] [phone] PCP - General Family Medicine 10/13/19 Yeison Olivia PharmD [address] [place] [phone] Pharmacist Internal Medicine 11/27/22 documented as of this encounter
--- OUTSIDE RECORDS SUMMARY | 2024-12-19 13:02 | XMS_ITS | Encounter Summary ---
Author Organization [facility] Address [address] [place] [address] Care Team Providers Care Living Specialist Name Role Phone Tova Cronin MD Primary Care Provider + Yeison Olivia PharmD Unavailable [phone] Encounter Details Date Type Department Care Team (Late st Contact Info) Description 11/19/2024 Telephone [facility] [address] [place], [place] [phone] Tova Cronin MD [address] [place], [place] [phone] Social History Tobacco Use Types Packs/Day Years Used Date Smoking Tobacco: Never Passive Smoke Exposure: Never Smokeless Tobacco: Never Alcohol Use Standard Drinks/Week Comments Never 0 (1 standard drink = 0.6 oz pur e alcohol) Depression Answer Date Recorded Patient Health Questionnaire-9 Score 19 11/13/2024 Patient Health Questionnaire-9 Score 19 11/13/2024 Last PHQ-9: Questionnaire Data Not on file 0 11/13/2024 Housing Stability Answer Date Recorded What is your housing situation today? I have eloisa kiran 08/22/[address] you li ve. Do you have problems with any of the following? None of the above 08/22/2023 Food Insecurity Answer Date Recorded Within the past 12 months, y ou worried that your food would run out before you got money to buy more: Sometimes True 2024 Within the past 12 months,th e food you bought just didn't last and you didn't have enough money to get more: Sometimes True 11/04/2024 Transportation Answer Date Recorded In the past 12 months, has l ack of transportation kept you from medical appts, meetings, work or from getting things needed for daily living? No 11/04/2024 Utilities Answer Date Recorded In the past 12 months, has t he electric, gas, oil or water company threatened to shut off services in your home? No 08/22/2023 Depression Answer Date Recorded Patient Health Questionnaire-2 Score 6 11/13/2024 Internet Access Answer Date Recorded Internet Access Q1 Yes 11/04/2024 Internet Access Q2 Not on file 11/04/2024 Comments No Sex and Gender Information Value Date Recorded Sex Assigned at Female 08/28/2022 10:17 AM EDT Legal Sex Female 10:17 AM EDT Gender Identity Female 08/28/2022 10:17 AM EDT Sexual Orientation Choose not to disclose 2021 10:17 AM EDT documented as of this encounter Miscellaneous Notes * Telephone Encounter - Carito Rodriguez - 11/19/2024 10:35 AM EST [employer] was called and informed that patient was interested in changing her mask to a smaller size. Staff Member Galileo stated that the initial kit sent with the machine had different sizeshields that would help keep the mask secure while sleeping. Galileo stated that he would have a burkinan speaking staff contact the patient so that they can help the patient through adjusting the mask or order a new one if needed. * Telephone Encounter - Carito Rodriguez - 11/19/2024 10:35 AM EST ----- Message from Tova Cronin MD sent at 11/14/2024 3:57 PM EST ----- Please call DME supplier to fu with patient for a fitted mask, the current one is sliding off so patient can't use it all night. documented in this encounter Plan of Treatment Upcoming Encounters Date Type Department Care Team (Late st Contact Info) Description 01/13/2025 11:45 AM EDT Office Visit [facility] [address] [place] [id number] Tova Cronin MD [address] [place] [address] documented as of this encounter Goals Goal Patient Goal Type Associated Problems Recent Progress Patient-Stated? Author Blood Pressure < 140/90 Blood Pressure 130/95( 025 11:23 AM EST) No Yeison Olivia, KavitaD documented as of this encounter Visit Diagnoses Not on filedocumented in this encounter Additional Health Concerns Assessment Noted Time PHQ-9 Depression Total Score: 025 11:15 AM EST documented as of this encounter Care Teams Living Specialist Relationship Specialty Start Date End Date Tova Cronin MD [address] [place] [id number] PCP - General Family Medicine 10/13/19 Yeison Olivia, PharmD [address] [place] [phone] Pharmacist Internal Medicine 11/27/22 documented as of this encounter
--- OUTSIDE RECORDS SUMMARY | 2024-12-19 13:02 | XMS_ITS | Clinical Summary ---
Author Organization [employer] Address [address] [facility] [address] [place] [address] Care Team Providers Care [employer] Cook Name Role Phone Tova Cronin MD Primary Care Provider + Yeison Olivia PharmD Unavailable [phone] Allergies Active Allergy Reactions Criticality Noted Date Comments Gadolinium Rash Low 05/29/2012 Gramineae Pollens 11/27/2022 Medications rosuvastatin (Crestor) 10 MG tablet Take 1 tablet by mouth daily 3 Active hydrOXYzine pamoate (Vistaril) 50 MG capsule Take 50 mg by mouth. 4 Active mirtazapine (Remeron) 15 MG tablet Take 1 tablet by mouth at bedtime 3 Active sertraline (Zoloft) 100 MG tablet Take 1 tablet by mouth daily 3 Active ARIPiprazole (Abilify) 15 MG tablet Take 1 tablet by mouth daily 3 Active docusate sodium (Colace) 100 MG capsule TAKE 1 CAPSULE BY MOUTH TWICE DAILY 180 capsule 1 4 Active meloxicam (Mobic) 15 MG tablet Take 1 tablet (15 mg) by mouth in the morning. 30 tablet 4 025 Active fluticasone (Flonase) 50 MCG/ACT nasal spray Administer 1 spray into each nostril Once per day. 16 g 4 Active albuterol 108 (90 Base) MCG/ACT inhalerIndicatio ns:Mild intermittent asthma without complication Inhale 2 puffs every 4 (four) hours if needed for wheezing or shortness of breath. 18 g 5 Active albuterol (2.5 MG/3ML) 0.083% nebulizer solutionIndicati ons:Moderate persistent asthma without complication Take 3 mL by nebulization every 4 (four) hours if needed for wheezing. Max 6 nebs / day 75 mL 2 5 026 Active dilTIAZem CD (Cardizem CD) 180 MG 24 hr capsuleIndicatio ns:HTN (hypertension), benign TAKE 1 CAPSULE BY MOUTH EVERY MORNING 90 capsule 1 5 Active lisinopril-hydro CHLOROthiazide 20-25 MG tabletIndication s:HTN (hypertension), benign Take 2 tablet by mouth once daily in the morning 60 tablet 11 5 Active pantoprazole (ProtoNix) 40 MG EC tablet TAKE 1 TABLET BY MOUTH BEFORE BREAKFAST 90 tablet 5 Active ergocalciferol (Vitamin D2) 1.25 MG (20154 UT) capsule Take 1 capsule (1.25 mg) by mouth 1 (one) time per week. 12 capsule 1 5 025 Active Active Problems Problem Noted Date Diagnosed Date Ovarian mass, right 05/09/2024 Assessment & Plan (05/09/2024 11:37 AM EDT): Sp right salpingo oophorectomy, fu pathology results, disch summary not available. Advised to fu with [employer] re results. Finger pain, right 01/30/2024 Assessment & Plan (01/30/2024 11:37 AM EDT): Most likely finger sprain. Order X-ray, add body tape to finger and will follow up prn after X-ray findings. Nausea and vomiting 01/25/2024 Assessment & Plan (01/30/2024 11:35 AM EDT): Resolved, apparently related to BPPV. Assessment & Plan (01/25/2024 2:37 PM EDT): Most likely viral disease? RO gastritis? HTN Urgency? Patient unable to tolerate PO juice, EMS is called to take her to ED for further evaluation and IV hydration I spoke with her daughter who was present at the visit and they both agreed with POC. Will fu after discharge. HTN (hypertension), benign 10/08/2023 Assessment & Plan (11/14/2024 4:03 PM EST): Uncontrolled, she's not taking meds as prescribed. Restart Zestoretic 2 tabs daily + Diltiazem 1x/d and fu BP w me in 1m Order labs Counseled re low salt diet/increase moderate physical activity. Check home BP BIW and prn CP/RODRIGES/HAGEN Non smoking patient. Assessment & Plan (07/07/2024 11:03 AM EDT): Seems to be better controlled at home , rule out white coat HTN Continue Diltiazem and Lisinopril, due for BMP in September Counseled re low salt diet/increase moderate physical activity. Check home BP BIW and prn CP/RODRIGES/HAGEN Non smoking patient. Assessment & Plan (05/09/2024 11:38 AM EDT): Uncontrolled, repeated BP is 160/95. Compliant w/meds Continue lisinopril/hctz + diltiazem 180mg Counseled re low salt diet/increase moderate physical activity. Advised re tight pain control, she will call [employer] to fu, take ibuprofen prn Check home BP BIW and prn CP/RODRIGES/HAGEN Non smoking patient. Assessment & Plan (05/02/2024 4:41 PM EDT): It seems to be much better controlled. Compliant w/meds Continue lisinopril/hctz + Diltiazem Counseled re low salt diet/increase moderate physical activity. Check home BP BIW and prn CP/RODRIGES/HAGEN Non smoking patient. Fu in 6-8w Assessment & Plan (03/06/2024 9:52 AM EDT): Most likely uncontrolled, increase lisinopril/HCTZ to 20/25mg. Check BMP in 2 wks Counseled re low salt diet/increase moderate physical activity. Check home BP BIW and prn CP/RODRIGES/HAGEN Non smoking patient. Fu w/ [facility] clinic in 1 m and w/ me in 8 wks Assessment & Plan (01/30/2024 11:40 AM EDT): Improving, unclear if controlled. No changes in medications today, pt will bring in her medication bottles on her next visit in 4 weeks. Counseled re low salt diet/increase moderate physical activity. Check home BP BIW and prn CP/RODRIGES/HAGEN Non smoking patient. Discussed with pt recent head CT scan findings and importance of tight control of hypertension. Follow up with me in 4 weeks. Assessment & Plan (01/25/2024 2:08 PM EDT): Uncontrolled today, unchanged after acute event. No meds change, Patient is going to ED due to MS changes and acute vomiting, I will fu in 2w Assessment & Plan (10/08/2023 11:20 AM EST): Uncontrolled. Continue lisinopril/hctz same dose Counseled re low salt diet/increase moderate physical activity. BP is 150/98 Check home BP BIW and prn CP/RODRIGES/HAGEN Non smoking patient. Patient needs to start using CPAP ISELA, see above F/u in 3 mos PVC (premature ventricular contraction) 08/27/20 23 08/27/2023 Morbid obesity 08/27/2023 08/27/2023 Assessment & Plan (11/14/2024 4:04 PM EST): Discussed re weight reduction options including exercise, life style modifications, diet. Recommended to decrease soda and sugary beverage consumption, increase protein intake with meals (at least 1 portion of protein with each meal) to assist with satiety, increase dietary fiber Recommended at least 150 min/week of moderate intensity exercise. Declined a referral to dietitian Migraine headache 08/27/2023 08/27/2023 Dysthymia 08/27/2023 08/27/2023 Chronic anemia 08/27/2023 08/27/2023 Asthma 08/27/2023 08/27/2023 Assessment & Plan (10/08/2023 11:18 AM EST): Fairly controlled Symptoms of URI Continue albuterol TID and Prn shortness of breath Continue Flovent BID [employer] to have Influenza and COVID Booster in 2 weeks once URI symptoms have resolved Moderate persistent asthma without complication 07/09/2023 Assessment & Plan (11/14/2024 3:59 PM EST): Doing well on albuterol prn only Declined Covid and Influenza IZ today. Assessment & Plan (07/07/2024 10:58 AM EDT): - reminded to use Albuterol PRN - advised to have influenza and covid booster this fall COVID-19 06/07/2023 Assessment & Plan (06/07/2023 12:27 PM EDT): Rapid Covid test is positive, we discussed with pt regarding s/s and to call PRN if she has worsening cough, fever, weakness, headache, or chest pain Self-care measures: Rest (sleep at least 8 hours a night). Hydrate with plenty of water (avoid caffeine and alcohol). Use saline nose drops to loosen mucus Take Acetaminophen (Tylenol??)or Ibuprofen as needed to reduce fever or discomfort Gargle with salt water and use throat sprays/lozenges for throat pain. Use heated, humidified air. If you do not have a humidifier, take hot showers. Limit spread to others: Wash hands frequently. Cover coughs and sneezes using the crook of your elbow. If you have a fever, stay home and away from others (self isolation) until fever-free for 72 hours (temperature should be less than 100??F without medication). Symptoms at this time are mild and is second day Pt will call bacak tomorrow if symptoms have not improved, and will start paxlovid Pt will wear mask for at least 5 days and stay home Zena 04/26/2023 Assessment & Plan (04/26/2023 11:08 AM EDT): seems to be actinik keratosis refer to derm for further eval Abnormal EKG 04/26/2023 Overview (08/27/2023): Inverted T waves on gianfranco septal leads/ repolarization abn lat leads, no change from previous one on 2020. Pos tress test on 2020 ([facility] [place] and Coronary CTA with mild LAD and Left Main calcification ([facility] [place] on 2020) FU by cards (Dr Parrish) Assessment & Plan (04/26/2023 2:21 PM EDT): Inverted T waves on gianfranco septal leads/ repolarization abn lat leads, no change from previous one on 2020. Pos tress test on 2020 ([facility] [place]) and Coronary CTA with mild LAD and Left Main calcification ([facility] [place] on 2020) FU by cards (Dr Parrish) Gastroesophageal reflux dise ase with esophagitis without hemorrhage 04/26/2023 Overview (04/26/2023): EGD on 03/2027 at [facility] [place] Epigastric pain 02/08/2023 Assessment & Plan (11/14/2024 3:56 PM EST): Improved with PPI,out of meds not. Restart Pantoprazole and fu in 1mo Will fu with GI if sxs do not improve. Assessment & Plan (02/08/2023 1:00 PM EDT): R/o gastritis Use sucralfate and FU with GI in 1 month and with me in 3 months We discussed about dietary modifications and avoid NSAIDs. Right tennis elbow 02/07/2023 Slow transit constipation 11/20/2022 Assessment & Plan (11/20/2022 11:17 AM EST): -Restart Colace BID. -Use Bentyl or Levsin PRN abdominal pain. -counseled regarding keeping a food diary. -FU with me in 3 months and will review last colonoscopy. Acute upper respiratory infection 09/30/2022 Arthritis 09/30/2022 Calcification of breast 09/30/2022 Chronic right shoulder pain 09/30/2022 Assessment & Plan (10/01/2022 5:41 PM EST): Refer to PT, seen on 08/31/22 Disorder of rotator cuff 09/30/2022 Encounter for laboratory testing for COVID-19 vi radha 09/30/2022 Arthralgia of right temporomandibular joint 12/2021 Assessment & Plan (07/07/2024 11:00 AM EDT): - advised to use heat on affected area + Tylenol PRN + Diclofenac gel - she will f/u with dentist next week if symptoms do not improve Herpes labialis 09/30/2022 Numbness of toes 09/30/2022 Numbness of tongue 09/30/2022 Osteoarthritis of shoulders, bilateral Stress-related problem 09/30/2022 Suspected COVID-19 virus infection 09/30/2022 Trigger ring finger of right hand 09/30/2022 Calcification of right breast on mammography 04/2020 Primary osteoarthritis of right shoulder 019 Myofascial pain 11/28/2018 Shoulder pain 11/28/2018 Assessment & Plan (01/30/2024 1:21 PM EDT): On left side, Most likely OA, order X-ray. She had RC repair on right side. Refer to joint injection clinic, she has completed PT recently. Will refer to Orthopedics if symptoms did not improve with steroid injection. Assessment & Plan (10/08/2023 11:22 AM EST): Recommend Tylenol PRN Apply heat to affected area [employer] regarding stretching exercises and refer to PT Osteoarthritis of acromioclavicular joint 2015 Gastroesophageal reflux disease 08/03/2015 Assessment & Plan (11/14/2024 4:04 PM EST): Restart PPI and fu w me in 4w Consider send back to GI if sxs do not resolve Assessment & Plan (01/25/2024 2:35 PM EDT): Likely exacerbated after vomiting. Patient is on PPI, will go to ED for hydration and IV PPI if needed. Obstructive sleep apnea syndrome 08/03/2015 Assessment & Plan (11/14/2024 3:58 PM EST): Using CPAP less than 4h per night due to mask not fitting well. Advised to call DME supplier for a new fitted mask Assessment & Plan (07/07/2024 10:56 AM EDT): - doing well on CPAP, started last month - advised to use every night for at least 4 hours, will need to replace accessories every 6 months - we discussed importance of using it every night to decrease morbidity and mortality Assessment & Plan (05/02/2024 4:39 PM EDT): Rx sent again last month. Patient needs to use CPAP as soon as it is delivered, to decrease morbidity and mortality. Assessment & Plan (10/08/2023 11:14 AM EST): CPAP has not been delivered apparently due to a clinic error Patient will f/u and will get back with me if CPAP has still not been delivered. Assessment & Plan (07/09/2023 8:16 PM EDT): Needs to use CPAP every night to decrease morbidity and mortality. I gave her [employer] info for her to call them and set up the pickle maker with them. They apparently haven't called her back to set up delivery or pickle maker Assessment & Plan (06/07/2023 12:28 PM EDT): Pt is to use CPAP every night to decrease morbidity and mortality Pt has not had CPAP delivered yet by [employer]. Will contact [employer] and have them fu with pt Recurrent major depression in partial remission 08/03/2015 Assessment & Plan (11/14/2024 4:05 PM EST): FU by psychiatry, doing well. Continue on abilify,sertraline and mirtazapine Assessment & Plan (03/06/2024 9:53 AM EDT): Seems to be doing well and followed by Javier Larry Continue w/ fu by psychiatrist. Assessment & Plan (04/26/2023 11:10 AM EDT): Seems to be doing well, feels safe at home FU with Dr. Evangelista and therapist Continue aripiprazole 5 + certraline 75 mg + trazodone + mirtazapine. Unclear if she is still taking risperdal Bring medication at next appointment Impaired fasting glucose 07/15/2013 Vitamin D deficiency 03/03/2013 Assessment & Plan (11/14/2024 4:06 PM EST): Off meds, re check Vit D levels and fu at next appt She's at high risk of osteoporosis, will order BMD test Hypercholesterolemia 10/17/2012 Assessment & Plan (02/08/2023 12:59 PM EDT): LDL is at goal. Continue crestor We discussed re rx options. She wants to be more strict with life style modifications. Recommended moderate amount of exercise and increased consumption of fruit, vegetables, fish and high fiber foods. We discussed about avoiding consumption of highly saturated fats or trans fats. FU lipids in 1 year Irritable bowel syndrome 10/17/2012 Assessment & Plan (02/08/2023 12:58 PM EDT): Doing better with dietary modifications. Use Levsin and FU GI next month Assessment & Plan (11/20/2022 11:14 AM EST): -See above. -Pt agreed to have Covid booster and Tdap. Allergic rhinitis 05/09/2012 Atherosclerotic cardiovascular disease 2 Assessment & Plan (07/09/2023 8:18 PM EDT): Borderline controlled. Repeated one is 140/87. Needs to use CPAP every night and fu w me in 2-3m No change in meds, see previous note. Assessment & Plan (06/07/2023 12:27 PM EDT): BP is at goal. Continue diltiazem + lisinopril/HCTZ and FU with me in 1 month Counseled re low salt diet/increase moderate physical activity. Check home BP BIW and prn CP/RODRIGES/HAGEN Non smoking patient. FU in 4 weeks Assessment & Plan (04/26/2023 11:09 AM EDT): Uncontrolled. Pt needs to bring BP readings from home, fu with HTN clinic in two weeks. I will give her the information of CPAP DME supplier to call back and obtain CPAP ASA Counseled re low salt diet/increase moderate physical activity. Check home BP BIW and prn CP/RODRIGES/HAGEN Non smoking patient. She will go to ED if she presents episodes of headache, dizziness, exertional chest pain, otherwise follow up with me in 6 weeks No change in medications today needs to bring medicaiton bottles Assessment & Plan (02/08/2023 12:58 PM EDT): BP is at goal. No change in medicaiotn. Continue checking BP onces per week and FU with me in 3 months. Counseled re low salt diet/increase moderate physical activity. Check home BP BIW and prn CP/RODRIGES/HAGEN Non smoking patient. Assessment & Plan (11/20/2022 11:18 AM EST): BP is improving, not at goal. -Increase Cardizem CD to 180 mg. -Continue Zestoretic check labs prior to next appointment and FU with me in 3 months. -Encouraged to increase physical activity and limit sodium intake. 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 11/13/2024 Encounters Date Type Department Care Team Description 11/19/2024 Telephone [facility] [address] [facility] [place] [address] Tova Cronin MD 11/14/2024 Telephone [facility] [address] [place] [address] Lorene Denney, RN Results 11/14/2024 Orders Only [facility] [address] [place] [address] Tova Cronin MD 11/13/2024 11:15 AM EST Office Visit [facility] [place] [address] Tova Cronin MD Epigastric pain (Primary Dx); Obstructive sleep apnea syndrome; Moderate persistent asthma without complication; HTN (hypertension), benign; Gastroesophageal reflux disease with esophagitis without hemorrhage; Mild intermittent asthma without complication; Recurrent major depression in partial remission ([facility]); Morbid obesity ([facility]); Vitamin D deficiency; Asymptomatic menopausal state 11/13/2024 Travel 11/11/[address] [address] Valerie Irving MA Chart prep 11/04/2024 Patient Outreach [address] [address] Tova Cronin MD Care Coordination ([facility] outreach for SDOH PT-1 and food needs-referral completed /) 11/04/2024 Patient Outreach [address] [address] Tova Cronin MD 11/04/2024 Patient Outreach [address] [address] Tova Cronin MD Pre-visit Planning (SDOH screening positive and tobacco screening negative) 09/30/[address] [address] Joselin Galvan, RN Results 09/29/[address] [address] Sofia Flores MA DME for CPAP 09/29/2024 Orders Only [address] [id number] Shaun Garza CNM 09/23/2024 1:45 PM EST Procedure Visit [address] [id number] Shaun Garza CNM Cervical cancer screening (Primary Dx); Breast cancer screening by mammogram; Abnormal urine odor; Vaginal itching; Stress incontinence 09/23/2024 Travel from Last 3 Months Immunizations Name Administration Dates Next Due Influenza injectable quadriv alent IIV4 with preservative 12/22/2019,08/03/2015 Influenza injectable quadriv alent preservative free 09/28/2020 Influenza, IIV3, injectable 07/29/2021 Influenza, Split (incl. pollo fied surface antigen) 12/22/2013,08/27/2012 Moderna Covid-19 Vaccine 12+ 04/06/2021,03/09/20 21 Pneumococcal Conjugate PCV 13 05/19/2021, 021 Pneumococcal Polysaccharide PPSV23 11/19/2007 TD (adult), 2 Lf tetanus tox oid, preservative free, adsorbed 11/19/2007 Tdap 12/22/2013 Zoster, Recombinant 07/21/2021,05/19/2021,2020 Social History Tobacco Use Types Packs/Day Years Used Date Smoking Tobacco: Never Passive Smoke Exposure: Never Smokeless Tobacco: Never Tobacco Cessation:Counseling Given: Not Answered Alcohol Use Standard Drinks/Week Comments Never 0 [...] not to disclose 2021 10:17 AM EDT Last Filed Vital Signs Vital Sign Reading Time Taken Comments Blood Pressure 130/95 11/13/2024 11:23 AM EST Pulse 76 11/13/2024 11:13 AM EST Temperature 36.9 ??C (98.4 ??F) 11/13/2024 11:[address] Respiratory Rate 18 11/13/2024 11:13 AM EST Oxygen Saturation 98% 09/23/2024 1:28 PM EST Inhaled Oxygen Concentration - - Weight 69.5 kg (153 lb 2 oz) 11/13/2024 11:13 AM EST Height 142.2 cm (4' 8 ) 11/13/2024 11:13 AM EST Body Mass Index 34.33 11/13/2024 11:13 AM EST Plan of Treatment Upcoming Encounters Date Type Department Care Team (Late st Contact Info) Description 01/13/2025 11:45 AM EDT Office Visit [facility] [address] [place] [address] Tova Cronin MD [address] [place] [address] Health Maintenance Due Date Last Done Comments CT Colonography 1964 FIT DNA/Cologuard 1964 FIT 1964 FOBT 1964 HIV Screening 1964 Sigmoidoscopy 1964 Alcohol/Substance Use Screening 1976 Hepatitis C Screening 1982 DTaP/Tdap/Td Vaccines (2 - Td or Tdap) 12/22/2023 12/22/2013, 11/19/2007 COVID-19 Vaccine ( season) 2024 01/14/2022, 04/06/2021, 03/09/2021 Influenza Vaccine (#1) 2024 , 09/28/2020, 12/22/2019, Additional history exists RSV Patients and Patients Aged 60 years or older (1 - Risk 60-74 years 1-dose series) 2024 Depression Monitoring (PHQ-9) 05/13/2025 11/13/2024, 11/13/2024 Mammogram 11/04/2025 11/04/2024, 06/29, 07/14/2021, Additional history exists SDOH Screening 11/04/2025 11/04/2024 Depression Screening 11/13/2025 11/13/2024, 11/13/19 25 Tobacco Screening 11/13/2025 11/13/2024 Pneumococcal Vaccine: 50+ Years (3 of 3 - PCV20 or PCV21) 05/19/2026 05/19/2021, 05/12/2021, 11/19/2007 Cervical Cancer Screening 09/23/2029 HPV/Cotest 09/23/2029 09/24/2019 Pap Smear 09/23/2029 09/23/2024 Lipid Panel 11/13/2029 11/13/2024, 12/28, 05/12/2022 Colonoscopy 04/24/2033 Colorectal Cancer Screening 04/24/2033 Zoster Vaccines Completed 07/21/2021, 04/29, 05/12/2021 HIB Vaccines Aged Out No longer eligi [...] patient's age to complete this topic Meningococcal Vaccine Aged Out No nika inez eligible based on patient's age to complete this topic RSV under 20 months Aged Out No longe r eligible based on patient's age to complete this topic Rotavirus Vaccines Aged Out No longer eligible based on patient's age to complete this topic Goals Goal Patient Goal Type Associated Problems Recent Progress Patient-Stated? Author Blood Pressure < 140/90 Blood Pressure 130/95( 025 11:23 AM EST) No Yeison Olivia, PharmD Procedures Procedure Name Priority Date/Time Associated Diagnosis Comments VITAMIN D,25-OH,TOTAL,IA Routine 11/13/2024 11:43 AM EST Morbid obesity (CMS/HCC) LIPID PANEL WITH REFLEX TO DIRECT LDL Routine 11/13/2024 11:43 AM EST HTN (hypertension), benign BASIC METABOLIC PANEL Routine 11/13/2024 11:43 AM EST HTN (hypertension), benign BI MAMMOGRAM SCREENING TOMOSYNTHESIS BILATERAL Routine 11/04/2024 11:34 AM EST Breast cancer screening by mammogram BACTERIAL VAGINOSIS PANEL Routine 09/23/2024 1:42 PM EST Vaginal itching CULTURE, URINE, ROUTINE Routine 09/23/2024 1:42 PM EST Abnormal urine odor PAP SMEAR Routine 09/23/2024 1:41 PM EST Cervical cancer screening ZZZ HISTORICAL HPV MRNA E6/E7 Routine 09/24/2019 10:07 AM EST from Last 3 Months or Most Recently Relevant to Health Maintenance Results * (ABNORMAL) Vitamin D, 25-Hydroxy, Total, Immunoassay (11/13/2024 11:43 AM EST) Vitamin D 25-OH Total 12.2(L) >30 ng/mL [facility] Comment:Health Based Referen ce Values*< 20 ng/mL Axokcigpr77-60 ng/mL Insufficient> 30 ng/mL Sufficient*Judy HATHAWAY. N Engl J Med. 2007;357:266-280Care must be taken in interpreting Vitamin D results fromdifferent laboratories and methodologies. Published datademonstrated that results from patients undergoinghemodialysis may show a negative bias when tested withvarious automated 25-OH vitamin D assays when compared toLC-MS/MS.When testing samples from patients whose predominant form ofVitamin D is Vitamin D2, such as patients receiving VitaminD2 supplementation, results that are subtherapeutic shouldbe confirmed with another method such as LC-MS/MS. Blood 11/13/2024 11:4 3 AM EST 11/13/2024 1:03 PM EST us Tova Cronin MD LAB BLOOD ORDERABLES Fin al Result Performing Organization Address City/[facility] Co de Phone Number [facility] [address] [place] [phone] * Lipid Panel with Reflex to Direct LDL (11/13/2024 11:43 AM EST) Triglycerides 90 <150 mg/dL [facility] Comment:Desirable Triglyceri de: less than 150 mg/dLBorderline High Triglyceride 150-199 mg/dLHigh Triglyceride: 200-499 mg/dLVery High Triglyceride: greater than or equal to 5OO mg/dL Cholesterol 142 <200 mg/dL [facility] Comment:Desirable Cholestero l: less than 200 mg/dLBorderline High Cholesterol: 200-239 mg/dLHigh Cholesterol: greater than 239 mg/dL LDL Cholesterol Calculated 72 <100 mg/dL [facility] Comment:Desirable LDL: less than 100 mg/dLNear Optimal/Above Optimal LDL: 110- 129 mg/dLBorderline High LDL: 130-159 mg/dLHigh LDL: 160-189 mg/dLVery High LDL: greater than or equal to 190 mg/dL HDL Cholesterol 52 >40 mg/dL [facility] Comment:Desirable HDL: great er than 40 mg/dL Note: This HDL assay may give artificially low results in patients with liver disease. Blood 11/13/2024 11:4 3 AM EST 11/13/2024 1:03 PM EST us Tova Cronin MD LAB BLOOD ORDERABLES Fin al Result Performing Organization Address City/[facility]/ZIP Co de Phone Number [facility] [address] [place] [address] [phone] * (ABNORMAL) Basic Metabolic Panel (11/13/2024 11:43 AM EST) Sodium 146(H) 135 - 145 mmol/L [facility] Potassium 4.8 3.3 - 5.1 mmol/L [facility] Chloride 109(H) 96 - 108 mmol/L [facility] Carbon Dioxide 30(H) 22 - 29 mmol/L [facility] Anion Gap 12 12 - 20 [facility] Urea Nitrogen (BUN) 16 9 - 16 mg/dL [facility] Creatinine, Serum 0.79 0.5 - 1.4 mg/dL [facility] Estimated Glomerular Filt Rate >60 [facility] Comment:Chronic Kidney Disea se: Estimated GFR < 60 mL/min/1.55l5Txpeng Kidney Disease: Estimated GFR < 15 mL/min/1.73m2 Glucose 82 60 - 115 mg/dL [facility] Calcium 9.2 8.4 - 10.2 mg/dL [facility] Blood Venous blood specimen / Unknown 11/13/2024 11:43 AM EST 11/13/2024 1:03 PM EST Tova Cronin MD LAB BLOOD ORDERABLES Fin al Result [facility] [address] [place] [address] [phone] * BI Mammogram Screening Tomosynthesis Bilateral (11/04/2024 11:34 AM EST) Anatomical Region Laterality Modality Breast Bilateral Mammography 11/04/2024 11:3 4 AM EST Narrative 11/10/2024 4:08 PM EST ? [facility] ? [address] ?[place] [address] ? Mammography Report ? Signed ? Patient: Olivia,Ramona G ?MR#: [id number] ?? [id number] ? : 1965 ?Acct:[id number] ? Age/Sex: 59 / F ?ADM Date: 01/07/25 ? Loc: HO.MAMMO ? Attending Dr: Shaun Garza CNM ? Ordering Physician: SHAUN GARZA CNM ?Results: 1 ?? Negative ? Date of Service: 11/04/24 ?Follow Up: 1 Year From Orig ?? inal Mammogram ? Procedure(s): MM tomosynthesis screening BI ?? Accession Number(s): [id number] ? cc: Tova Cronin MD; SHAUN GARZA CNM ? EXAMINATION: ?? MM SCREENING DIGITAL BREAST TOMOSYNTHESIS, BILATERAL ? CLINICAL INFORMATION: ? Screening. Asymptomatic. ? COMPARISON: ?? Mammography: Comparison is made with available priors ? TECHNIQUE: ?? Digital breast mammography with tomosynthesis is performed in both the ?? craniocaudal and mediolateral oblique views along with computer-aided ?? detection (CAD). ? FINDINGS: ?? There are scattered areas of fibroglandular density (ACR BI-RADS breast ?? composition Category b). ? There are no significant masses, abnormal calcifications, or other ?? abnormalities. ? MM/MM tomosynthesis screening BI ?? IMPRESSION: ?? No mammographic evidence of malignancy. ? ASSESSMENT: ? BI-RADS BI-RADS 1 - Negative ? RECOMMENDATION: ?? Routine annual mammography screening. ? 1 year F/U ? This examination should not preclude the clinical evaluation of a ?? suspicious palpable abnormality. ? This patient's information was entered into a reminder system with a ?? target due date for their next mammogram. ? Electronically signed by: ??Kirsten Simmons DO ??11/10/2024 04:05 PM EST ?? RP ? Dictated By: ?Kirsten Simmons DO ? Signed By: ?<Electronically signed by Kirsten Simmons, DO in OV> ? 11/10/24 1605 ? DD/ 1134 ? TD/TT: 11/04/24 1148 ? On Air Director: ? Procedure Note Donotuseinterpreter, Image - 11/10/2024 [facility] [address] [place] [address] Mammography Report Signed Patient: Ramona Olivia GMR#: [id number] : 1965Acct:[id number] Age/Sex: 59 / FADM Date: 11/04/24 Loc: HO.MAMMO Attending Dr: Shaun Garza CNM Ordering Physician: SHAUN GARZAesults: 1 Negative Date of Service: 11/04/24Follow Up: 1 Year From Orig inal Mammogram Procedure(s): MM tomosynthesis screening BI Accession Number(s): [id number] cc: Tova Cronin MD; SHAUN GARZA CNM EXAMINATION: MM SCREENING DIGITAL BREAST TOMOSYNTHESIS, BILATERAL CLINICAL INFORMATION: Screening. Asymptomatic. COMPARISON: Mammography: Comparison is made with available priors TECHNIQUE: Digital breast mammography with tomosynthesis is performed in both the craniocaudal and mediolateral oblique views along with computer-aided detection (CAD). FINDINGS: There are scattered areas of fibroglandular density (ACR BI-RADS breast composition Category b). There are no significant masses, abnormal calcifications, or other abnormalities. MM/MM tomosynthesis screening BI IMPRESSION: No mammographic evidence of malignancy. ASSESSMENT: BI-RADS BI-RADS 1 - Negative RECOMMENDATION: Routine annual mammography screening. 1 year F/U This examination should not preclude the clinical evaluation of a suspicious palpable abnormality. This patient's information was entered into a reminder system with a target due date for their next mammogram. Electronically signed by: Kirsten Simmons DO 11/10/2024 04:05 PM [facility] Dictated By: Kirsten Simmons DO Signed By: <Electronically signed by Kirsten Simmons DO in OV> 11/10/24 1605 DD/ 1134 TD/TT: 11/04/24 1148 On Air Director: Shaun Garza CNM IMG BI PROCEDURES Final R esult * Bacterial Vaginosis Panel (09/23/2024 1:42 PM EST) TRICHOMONAS VAGINALIS DETECTION BY PCR NOT DETECTED Not Detect [facility] BACTERIAL VAGINOSIS DETECTION BY PCR NEGATIVE Negative [facility] Comment:The BV organism targ ets of the Xpert Xpress MVP test can becommensal in women; Xpert Xpress MVP positive results forbacterial vaginosis should be considered in conjunction withother clinical and patient information to determine thedisease status. Organisms that are not detected by the XpertXpress MVP test have also been reported to be associatedwith BV and aerobic vaginitis.The Xpert Xpress MVP test performance has not been evaluatedin patients under the age of 14. BONITA GROUP DETECTION BY PCR NOT DETECTED Not Detect [facility] Bonita glab krusei PCR NOT DETECTED Not Detect [facility] Swab Vaginal structure / Unknown 09/23/2024 1:42 PM EST 09/23/2024 5:55 PM EST Shaun Garza CNM LAB MICROBIOLOGY - GENERA L ORDERABLES Final Result [facility] [address] [place] [phone] * Culture, Urine, Routine (09/23/2024 1:42 PM EST) Urine Urine specimen obtained by clean catch procedure / Unknown 09/23/2024 1:42 PM EST 09/23/2024 5:55 PM EST Comment:UACC Narrative [facility] - 09/25/2024 7:42 AM EST Escherichia coli Quant > 100,000 cfu/mL Escherichia coli: Ampicillin <=2(S) Escherichia coli: Cefazolin 2(S) Escherichia coli: Cefepime <=0.12(S) Escherichia coli: Ceftriaxone <=0.25(S) Escherichia coli: Ciprofloxacin <=0.06(S) Escherichia coli: Gentamicin <=1(S) Escherichia coli: Nitrofurantoin <=16(S) Escherichia coli: Trimethoprim/Sulfamethoxazole <=20(S) Specimen Source: Urine clean catch Shaun Garza CNM LAB MICROBIOLOGY - GENERA L ORDERABLES Final Result [facility] [address] [place] [phone] * Pap Smear (09/23/2024 1:41 PM EST) Swab Cervix uteri structure / Unknown 09/23/2024 1:41 PM EST 09/24/2024 8:30 AM EST [facility] - 10/01/2024 10:34 AM EST ----- ------- Name: Ramona Olivia ?Age/Sex: 59/F ? : 1965 Unit#: [id number] ?? Attend Dr: SHAUN GARZA CNM ?Re09/23/24 ?Status: DEP REF ? Location: [facility] ? Disch: ? ----- ------- SPEC : [id number] ?RECD: 09/24/24 ? STATUS: ??SOUT ? REQ NUM: [id number] ? NORIS: 09/23/24 ? SUBM DR: SHAUN GARZA CNM ? ENTERED: ??09/24/24 ?SP TYPE: Pap Smr ?OTHR : ? ORDERED: ??Pap Smear ? Interpretation ?? Satisfactory for evaluation. ?? Negative for intraepithelial lesion or malignancy. ?? No endocervical cells seen. ? HPV High Risk: ??Negative ? HPV Genotyping 16: ??Negative ?? HPV Genotyping 18: ??Negative ?Clinical Information LMP: Unknown date Previous PAP test: 2019, WNL ? Material Received ?? ThinPrep-Cervical ----- ------- Signed (signature on file) LarryASHIA Kaur (ASCP) 10/01/24 1034 ? ----- ------- ? END OF REPORT ? us Shaun Garza [facility] CYTOLOGY ORDERABLES F inal Result [facility] [address] [place] [phone] * HPV mRNA E6/E7 (09/24/2019 10:07 AM EST) [facility] HPV mRNA E6/E7 Not Detected NOT DETECTED [facility] Comment: This test was performed using the APTIMA(R) HPV Assay ([facility] [employer] This assay detects E6/E7 viral messenger RNA (mRNA) from 14 high-risk HPV types (16,18,31,33,35,39,45,51, 52,56,58,59,66,68). For additional information please refer to: http://education.[employer]/faq/DKV944d5 (This link is being provided for informational/ educational purposes only.) The analytical performance characteristics of this assay have been determined by [employer] [place], [place]. The modifications have not been cleared or approved by the FDA. This assay has been validated pursuant to the CLIA regulations and is used for clinical purposes. Test Performed by [employer], [employer] [facility], [id number] [place] [address] Chris Mares M.D., Ph.D., Director of Laboratories , [facility] [id number] Please note: ??Effective 07/10/2016, HPV testing will be performed using [employer]'s APTIMA test which targets mRNA. Detecting mRNA instead of DNA, as in older methods, offers significant improvements in specificity. 09/24/2019 10:0 7 AM EST us Shaun Garza CNM HISTORICAL/NON ORDERABLE LABS Final Result [facility] Anywhere [address] from Last 3 Months or Most Recently Relevant to Health Maintenance Insurance [facility] Care Teams School Cook Relationship Specialty Start Date End Date Tova Cronin MD [address] [place] [address] PCP - General Family Medicine 10/13/19 Yeison Olivia, KavitaD [address] [place] [phone] Pharmacist Internal Medicine 11/27/22
[2024-12-19 13:03] VITALS: BP 134/90; PULSE 109; BMI 37.0
--- NOTE | 2024-12-19 13:03 | MHC.OFFVIS ---
Vital Signs 12/19/24 13:03 Height 4 ft 6 in Weight 153 lb 7.068 oz BMI 37.0 BP 134/90 H Blood Pressure Location Lt brachial Position Sitting Pulse 109 H Pulse Source Monitor Intake Visit Reasons: f/up- echo/3 day holter Intake Note: Patient having palpitations & s/b Electric Brain Wave Equipment Mechanic Required: Yes Electric Brain Wave Equipment Mechanic Language: Shipyard Laborer Name: voice [id number] [id number] Allergies No Known Allergies Allergy (Verified 12/19/24 13:05) Medication List - Last Reconciled 12/19/24 by Shwetha Stone, FINANCIAL REPORT SERVICE SALES AGENT-C albuterol sulfate 90 mcg/actuation 1 inh inhalation QID bupropion HCl XL (Wellbutrin XL) 300 mg PO QAM diltiazem HCl CD mg PO DAILY hydrochlorothiazide 25 mg PO DAILY hydroxyzine pamoate (Vistaril) 50 mg PO Q6H lamotrigine (Lamictal) 200 mg PO BID lisinopril-hydrochlorothiazide 20-25 mg tabs PO meclizine (Dramamine Less Drowsy) 25 mg PO TID PRN ondansetron 4 mg PO Q6-8H PRN pantoprazole 40 mg PO DAILY rosuvastatin (Crestor) 10 mg PO DAILY trazodone 50 mg PO BEDTIME PRN HPI HPI f/up- echo/3 day holter: Details: Marcin is a 59-year-old female past medical history of hypertension, obesity, mild coronary calcification on CTA of the coronaries, who reported shortness of breath and heart palpitations on last visit. She underwent an echocardiogram and Holter monitor and now presents for follow-up. Today she reports that she continues to have issues with shortness of breath. At times she will also notice tightness in her chest. She feels her heart beating fast at times. She admits that she has issues with her asthma and that she believes her shortness of breath is asthma related. She uses her ProAir inhaler frequently. No PND, orthopnea or edema. No dizzy spells, presyncope, syncope. Compliant with meds. [facility] Medical History Hyperlipidemia IBS (irritable bowel syndrome) GERD (gastroesophageal reflux disease) HTN (hypertension) Sleep apnea Anemia Depression Hypothyroid Asthma Stroke Myocardial infarction Essential hypertension Cardiomyopathy PVC (premature ventricular contraction) Osteoarthritis of shoulders, bilateral Surgical History History of endometrial ablation History of tubal ligation History of sleeve gastrectomy (~08/2014) History of section Family History Mother Heart disease Social History Are you a primary veterinarian laboratory animal care to a significant other at home: No Do you presently have visiting nurse or other home services: No Alcohol intake: never Comment: 3 mths ago Patient Tobacco Use Status: Never used Tobacco Current occupational status: disabled 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 Review of Systems Const All systems reviewed & are unremarkable except as noted in HPI and below ENT Denies dizziness Card Details: chest tight when she feels sob Denies chest pain, Denies chest pain at rest, Denies chest pain with activity, Reports rapid heart rate, Denies pedal edema, Denies edema, Denies leg edema, Denies lightheadedness, Denies palpitations, Reports dyspnea, Reports dyspnea on exertion and Denies orthopnea Resp Denies cough, Reports dyspnea and Reports dyspnea on exertion GI Denies hematochezia and Denies change in stool character Musc Denies abnormal gait, Denies limited range of motion, Denies muscle cramps, Denies muscle weakness, Denies numbness, Denies radiating pain into limb, Denies stiffness and Denies tingling Neuro Denies abnormal gait, Denies dizziness, Denies numbness and Denies tingling Endo Denies palpitations Physical Exam Vital Signs: BMI result Body Mass Index 37.0 Const General: cooperative, healthy appearing, comfortable and no acute distress Orientation/consciousness: patient oriented x3 Neck Neck: Yes normal visual inspection Resp Effort & Inspection: normal respiratory effort Auscultation: clear to auscultation bilaterally, no rales, no rhonchi and no wheezes Cardio Rate: regular rate Rhythm: regular rhythm Heart sounds: S1 normal heart sound present, S2 normal heart sound present, no murmurs and no rubs Neuro General: patient oriented x3 Extrem General: Yes normal to inspection, No no pedal edema and No calf tenderness Psych Appearance: grossly normal Mental Status: mental status grossly normal Speech and movement: Normal speech and movement present Office Procedures EKG Details: Today, read by me, sinus tachycardia, nonspecific ST and T-wave abnormality, rate 109, QTC 398 milliseconds [id number], Complete Assessment & Plan Assessment & Plan (1) Atherosclerotic cardiovascular disease: Code(s): I25.10 - Atherosclerotic heart disease of [place] coronary artery without angina pectoris Category: Medical Plan: History of nonobstructive CAD. She has previously evaluated for chest discomfort and had a nuclear stress test 01/2021 which showed a small defect in the inferior lateral wall near the apex. This was followed by a CTA of the coronary arteries 05/06/2021 which showed only mild calcification of the left main and LAD. She does report intermittent tightness in the chest that correlates with shortness of breath. She has a history of asthma and tells me that her asthma bothers her frequently and she uses her albuterol inhaler most days. She is not describing chest discomfort that sounds like angina. EKG done today shows sinus tachycardia, nonspecific ST and T-wave abnormalities, rate 109. Prior EKG reviewed and also has some nonspecific abnormalities as well. She did use albuterol prior to this appointment. Pulse recheck after sitting was 96. Offered reassurance that current symptoms are likely not cardiac related. Did review signs and symptoms of true angina with her. Continue with risk factor modification. Continue rosuvastatin with ideal LDL goal less than 70. Continue diltiazem, lisinopril/hydrochlorothiazide for good blood pressure control. Emergency care if ever needed for symptoms. Cardiology follow-up 6 months, sooner if needed. (2) SOB (shortness of breath): Code(s): R06.02 - Shortness of breath Category: Medical (3) Palpitations: Code(s): R00.2 - Palpitations Category: Medical Plan: She reports that her heart is beating fast at times. Holter monitor done 11/06/2024 for 3 days shows sinus rhythm with average heart rate 83, occasional PVCs. Results reviewed with her. She does have sinus tachycardia initially today however likely related to use of albuterol inhaler. Continue diltiazem. No med changes made. (4) PVC (premature ventricular contraction): Code(s): I49.3 - Ventricular premature depolarization Category: Medical (5) Cardiomyopathy: Code(s): I42.9 - Cardiomyopathy, unspecified Category: Medical Qualifiers: Cardiomyopathy type: other Qualified Code(s): I42.8 - Other cardiomyopathies Plan: History of cardiomyopathy with EF as low as 40-45% in 2014. Echocardiogram 2020 showed EF 55-60%. She was reporting shortness of breath and a repeat echocardiogram was done 11/06/2024 showing EF 55%, no valve abnormalities and no regional wall motion abnormalities. No indication that her shortness of breath is cardiac related. Plan Time spent on chart review, documentation, interview and assessment Coding Level of Care Code Est Pt Level 4 (44502) Complex EM visit Add On G2211 Diagnoses Atherosclerotic cardiovascular disease I25.10 SOB (shortness of breath) R06.02 Palpitations R00.2 PVC (premature ventricular contraction) I49.3 Other cardiomyopathy I42.8 Cardiomyopathy type: other CPT Codes EKG - CPT: [id number], Complete ([id number]) Time Spent (min) 30
== END 2024-12-19 13:32 | disposition home or self-care (01) ==
PROVIDERS: PCP Internal Medicine; Visit Provider Nurse Practitioner Family
DX: I25.10 Atherosclerotic heart disease of native coronary artery without angina pectoris (principal); R06.02 Shortness of breath; R00.2 Palpitations; I49.3 Ventricular premature depolarization; I42.8 Other cardiomyopathies
CPT/HCPCS: 93010; 99214; G2211

== ENCOUNTER → 2024-12-19 12:20 | Outpatient (BNVA) | payer OTHER, SELFPAY | PROVIDERS: PCP Internal Medicine; Visit Provider Nurse Practitioner Family | DX: I25.10 Atherosclerotic heart disease of native coronary artery without angina pectoris (principal); I49.3 Ventricular premature depolarization; I42.8 Other cardiomyopathies; R06.02 Shortness of breath; R00.0 Tachycardia, unspecified; R00.2 Palpitations; R94.31 Abnormal electrocardiogram [ECG] [EKG] | CPT/HCPCS: 93005; 99212 ==

== ENCOUNTER 2024-12-30 14:22 | Outpatient (REF) | payer OTHER, SELFPAY ==
--- NOTE | ~2024-12-30 | MM_ITS ---
EXAMINATION: DXA BONE DENSITY AXIAL HISTORY: Estrogen deficiency TECHNIQUE: AquaHydrate Dual energy absorptiometry (DEXA) of the lumbar spine, total left hip, and femoral neck was performed. COMPARISON: There are no prior studies for comparison. FINDINGS: The bone mineral density of the lumbar spine is 0.977 with a T-score of -1.7, and a Z-score of -0.7. The bone mineral density of the left total hip is 0.870 with a T-score of -1.1, and a Z-score of -0.3. The bone mineral density of the left femoral neck is 0.739 with a T-score of -2.2, and a Z-score of -1.0. FRACTURE RISK: The FRAX index suggests a risk of major osteoporotic fracture of 5.2%, and of hip fracture 0.7%. MM/XR DEXA axial skeleton IMPRESSION: Based on bone mineral density, and according to World Health Organization (WHO) criteria, the diagnosis is consistent with osteopenia. All bone density values are in grams per centimeter squared (g/cm2). Statistically, 68% of repeat scans fall within 1 SD (+/- 0.010 g/cm2 for AP spine L1-L4) and 1 SD (+/- 0.012 g/cm2 for femur total) FRAX is a trademark of the [employer] [place] for Metabolic Bone Disease, a World Health Organization (WHO) Collaborating Center. Electronically signed by: Francisco Hamilton MD 01/02/2025 07:30 AM [facility]
--- OUTSIDE RECORDS SUMMARY | 2024-12-30 18:10 | XMS_ITS | Encounter Summary ---
Author Organization [employer] Address [address] [facility] [address] [place] [address] Care Team Providers Care Trust Clerk Name Role Phone Tova Cronin MD Primary Care Provider + Yeison Olivia PharmD Unavailable [phone] Encounter Details Date Type Department Care Team (Late st Contact Info) Description 10/13/2022 [facility] Information Management [address] [place], [place] [phone] Tova Cronin MD [address] [place], [place] [phone] Social History Tobacco Use Types Packs/Day Years [...] Description 01/13/2025 11:45 AM EDT Office Visit [facility] [address] [place], [place] [phone] Tova Cronin MD [address] [place] [address] documented as of this encounter Visit Diagnoses Not on filedocumented in this encounter Care Teams Trust Clerk Relationship Specialty Start Date End Date Tova Cronin MD [address] [place] [phone] PCP - General Family Medicine 10/13/19 Yeison Olivia, Zoran [address] [place] [phone] Pharmacist Internal Medicine 11/27/22 documented as of this encounter
--- OUTSIDE RECORDS SUMMARY | 2024-12-30 18:10 | XMS_ITS | Encounter Summary ---
Author Organization [email or web address] Address [address] [place] [address] Care Team Providers Care Plant Floor Automation Manager Name Role Phone Tova Cronin MD Primary Care Provider + Yeison Olivia PharmD Unavailable [phone] Reason for Visit * Reason Onset Date Comments Error 02/12/2024 Encounter Details Date Type Department Care Team (Late st Contact Info) Description 02/12/2024 Telephone [facility] [address] [place], [place] [phone] Tova Cronin MD [address] [place], [place] [phone] Error Social History Tobacco Use Types Packs/Day [...] Description 01/13/2025 11:45 AM EDT Office Visit [facility] [address] [place] [phone] Tova Cronin MD [address] [place] [phone] documented as of this encounter Goals Goal [...] documented as of this encounter Care Teams Plant Floor Automation Manager Relationship Specialty Start Date End Date Tova Cronin MD [address] [place] [address] [phone] PCP - General Family Medicine 10/13/19 Yeison Olivia PharmD [address] [place] [address] [phone] Pharmacist Internal Medicine 11/27/22 documented as of this encounter
--- OUTSIDE RECORDS SUMMARY | 2024-12-30 18:10 | XMS_ITS | Encounter Summary ---
Author Organization [employer] Address [address] [facility] [address] [place] [address] Care Team Providers Care Senior Backup Administrator Name Role Phone Tova Cronin MD Primary Care Provider + Yeison Olivia PharmD Unavailable [phone] Encounter Details Date Type Department Care Team ([facility] Contact Info) Description 11/08/2022 Orders Only [facility] [address] [place] [address] [phone] Tova Cronin MD [address] [place] [address] [phone] Moderate persistent asthma without complication (Primary Dx); [...] Description 01/13/2025 11:45 AM EDT Office Visit [facility] [address] [place] [address] [phone] Tova Cronin MD [address] [place] [phone] documented as of this encounter Visit Diagnoses Diagnosis Moderate persistent asthma without complication- Primary Mild intermittent asthma without complication documented in this encounter Care Teams Senior Backup Administrator Relationship Specialty Start Date End Date Tova Cronin MD [address] [place] [address] [phone] PCP - General Family Medicine 10/13/19 Yeison Olivia, KavitaD [address] [place] [address] [phone] Pharmacist Internal Medicine 11/27/22 documented as of this encounter
--- OUTSIDE RECORDS SUMMARY | 2024-12-30 18:10 | XMS_ITS | Clinical Summary ---
Author Organization [facility] ity Address [address] [place] [address] Care Team Providers Care Food Analyst Name Role Phone Tova Cronin MD Primary Care Provider [phone] Surgical History Surgery Date Site/Laterality Comments OTHER SURGICAL HISTORY 10/2023 Right PROCEDURE: GA [place]-OOPHORECTOMY COMPL/PRTL UNI/BI SPX Social History Tobacco [...] Documents on File Type Date Recorded Patient Area Intelligence Technician Expl anation Health Care Decision (hx) 11/21/2023 AD BOWEN DIRECTIVE Health Care Decision (hx) 11/21/2023 AD BOWEN DIRECTIVE Care Teams Food Analyst Relationship Specialty Start Date End Date Tova Cronin MD [address] [place] [phone] PCP - General 12/13/23
--- OUTSIDE RECORDS SUMMARY | 2024-12-30 18:10 | XMS_ITS | Clinical Summary ---
Author Organization [employer] Address [address] [facility] 7[address] [place] [address] Care Team Providers Care Hotel Maintenance Engineer Name Role Phone Tova Cronin MD Primary Care Provider + Yeison Olivia PharmD Unavailable [phone] Allergies Active Allergy Reactions Criticality Noted Date [...] 5 Active ergocalciferol (Vitamin D2) 1.25 MG (46647 UT) capsule Take 1 capsule (1.25 mg) by mouth 1 (one) time per week. 12 capsule 1 5 025 Active Active Problems Problem Noted Date Diagnosed Date Ovarian mass, right 05/09/2024 Assessment & Plan (05/09/2024 11:37 AM EDT): Sp right salpingo oophorectomy, fu pathology results, disch summary not available. Advised to fu with FINE [employer]S INSTRUCTOR re results. Finger pain, right 01/30/2024 Assessment [...] re tight pain control, she will call FINE ARTS INSTRUCTOR to fu, take ibuprofen prn Check home [...] Prn shortness of breath Continue Flovent BID Epic Cadence Analyst to have Influenza and COVID Booster in [...] on 2020. Pos tress test on 2020 ([facility]) and Coronary CTA with mild LAD and Left Main calcification ([facility] on 2020) FU by cards (Dr Parrish) Assessment & Plan (04/26/2023 2:21 PM EDT): Inverted T waves on gianfranco septal leads/ repolarization abn lat leads, no change from previous one on 2020. Pos tress test on 2020 ([facility]) and Coronary CTA with mild LAD and Left Main calcification ([facility] on 2020) FU by cards (Dr Parrish) Gastroesophageal reflux dise ase with esophagitis without hemorrhage 04/26/2023 Overview (04/26/2023): EGD on 03/2027 at [facility] Epigastric pain 02/08/2023 Assessment & Plan (11/14/2024 [...] Tylenol PRN Apply heat to affected area Epic Cadence Analyst regarding stretching exercises and refer to PT [...] decrease morbidity and mortality. I gave her [employer] info for her to call them and set up the diamond picker with them. They apparently haven't called her back to set up delivery or diamond picker Assessment & Plan (06/07/2023 12:28 PM EDT): [...] Type Department Care Team Description 11/19/2024 Telephone [facility] [address] [facility] [place] [address] Tova Cronin MD 11/14/2024 Telephone [facility] [address] [place] [address] Lorene Denney, RN Results 11/14/2024 Orders Only [facility] [address] [place] [address] Tova Cronin MD 11/13/2024 11:15 AM EST Office Visit [facility] [place] [address] Tova Cronin MD Epigastric pain (Primary Dx); Obstructive sleep apnea syndrome; Moderate persistent asthma without complication; HTN (hypertension), benign; Gastroesophageal reflux disease with esophagitis without hemorrhage; Mild intermittent asthma without complication; Recurrent major depression in partial remission ([facility]); Morbid obesity ([facility]); Vitamin D deficiency; Asymptomatic menopausal state 11/13/2024 Travel 11/11/2024 Telephone [facility] [address] [place] [phone] Valerie Irving [place] Chart prep 11/04/2024 Patient Outreach [address] [address] Tova Cronin MD Care Coordination ([facility] outreach for SDOH PT-1 and food needs-referral completed /) 11/04/2024 Patient Outreach [address] [address] Tova Cronin MD 11/04/2024 Patient Outreach [address] [address] Tova Cronin MD Pre-visit Planning (SDOH screening positive and tobacco screening negative) from Last 3 Months Immunizations Name Administration [...] Description 01/13/2025 11:45 AM EDT Office Visit [facility] [address] [place] [address] Tova Cronin MD [address] [place] [address] Health Maintenance Due Date Last Done Comments [...] Blood Pressure 130/95( 025 11:23 AM EST) Yeison Burt, Zoran Procedures Procedure Name Priority Date/Time Associated Diagnosis Comments VITAMIN D,25-OH,TOTAL,IA Routine 11/13/2024 11:43 AM EST Morbid obesity (CMS/HCC) LIPID PANEL WITH REFLEX TO DIRECT LDL Routine 11/13/2024 11:43 AM EST HTN (hypertension), benign BASIC METABOLIC PANEL Routine 11/13/2024 11:43 AM EST HTN (hypertension), benign BI MAMMOGRAM SCREENING TOMOSYNTHESIS BILATERAL Routine 11/04/2024 11:34 AM EST Breast cancer screening by mammogram PAP SMEAR Routine 09/23/2024 1:41 PM EST Cervical cancer screening Jose JuanZZ HISTORICAL HPV MRNA E6/E7 Routine 09/24/2019 10:07 AM EST from Last 3 Months or Most Recently Relevant to Health Maintenance Results * (ABNORMAL) Vitamin D, 25-Hydroxy, Total, Immunoassay (11/13/2024 11:43 AM EST) Vitamin D 25-OH Total 12.2(L) >30 ng/mL [facility] Comment:Health Based Referen ce Values*< 20 ng/mL Tenffxraw96-35 ng/mL Insufficient> 30 ng/mL Sufficient*Judy HATHAWAY. N [...] MD LAB BLOOD ORDERABLES Fin al Result [facility] [address] [place] [address] [phone] * Lipid Panel with Reflex to Direct LDL (11/13/2024 11:43 AM EST) Triglycerides 90 <150 mg/dL [facility] Comment:Desirable Triglyceri de: less than 150 mg/dLBorderline High Triglyceride 150-199 mg/dLHigh Triglyceride: 200-499 mg/dLVery High Triglyceride: greater than or equal to 5OO mg/dL Cholesterol 142 <200 mg/dL [facility] Comment:Desirable Cholestero l: less than 200 mg/dLBorderline High Cholesterol: 200-239 mg/dLHigh Cholesterol: greater than 239 mg/dL LDL Cholesterol Calculated 72 <100 mg/dL [facility] Comment:Desirable LDL: less than 100 mg/dLNear Optimal/Above Optimal LDL: 110- 129 mg/dLBorderline High LDL: 130-159 mg/dLHigh LDL: 160-189 mg/dLVery High LDL: greater than or equal to 190 mg/dL HDL Cholesterol 52 >40 mg/dL [facility] Comment:Desirable HDL: great er than 40 mg/dL Note: This HDL assay may give artificially low results in patients with liver disease. Blood 11/13/2024 11:4 3 AM EST 11/13/2024 1:03 PM EST us Tova Cronin MD LAB BLOOD ORDERABLES Fin al Result [facility] [address] [place] [phone] * (ABNORMAL) Basic Metabolic Panel (11/13/2024 11:43 AM EST) Sodium 146(H) 135 - 145 mmol/L [facility] Potassium 4.8 3.3 - 5.1 mmol/L [facility] Chloride 109(H) 96 - 108 mmol/L [facility] Carbon Dioxide 30(H) 22 - 29 mmol/L [facility] Anion Gap 12 12 - 20 [facility] Urea Nitrogen (BUN) 16 9 - 16 mg/dL [facility] Creatinine, Serum 0.79 0.5 - 1.4 mg/dL [facility] Estimated Glomerular Filt Rate >60 [facility] Comment:Chronic Kidney Disea se: Estimated GFR < 60 mL/min/1.95d0Hzkgdx Kidney Disease: Estimated GFR < 15 mL/min/1.73m2 Glucose 82 60 - 115 mg/dL [facility] Calcium 9.2 8.4 - 10.2 mg/dL [facility] Blood Venous blood specimen / Unknown 11/13/2024 11:43 AM EST 11/13/2024 1:03 PM EST us Tova Cronin MD LAB BLOOD ORDERABLES Fin al Result [facility] [address] [place] [phone] * BI Mammogram Screening Tomosynthesis Bilateral (11/04/2024 11:34 AM EST) Anatomical Region Laterality Modality Breast Bilateral Mammography 11/04/2024 11:3 4 AM EST Narrative 11/10/2024 4:08 PM EST ? [facility] [place] ? [address] ?[place] [address] ? Mammography Report ? Signed ? Patient: OliviaRamona ?MR#: [id number] ?? [id number] ? : 1965 ?Acct:[id number] ? Age/Sex: 59 / F ?ADM Date: 11/04/24 ? Loc: HO.MAMMO ? Attending Dr: Shaun Garza CNM ? Ordering Physician: SHAUN GARZA CNM ?Results: 1 ?? Negative ? Date of Service: 11/04/24 ?Follow Up: 1 Year From Orig ?? inal Mammogram ? Procedure(s): MM tomosynthesis screening BI ?? Accession Number(s): [id number] ? cc: Tova Cronin MD; SHAUN GARZA [...] ??Kirsten Simmons DO ??11/10/2024 04:05 PM EST ? Dictated By: ?Kirsten Simmons DO ? Signed By: ?<Electronically signed by Kirsten Simmons, DO in OV> ? 11/10/24 1605 ? DD/ 1134 ? TD/TT: 11/04/24 1148 ? Adjunct Lecturer: ? Procedure Note Ani Parry - 11/10/2024 [facility] [address] [place] [address] Mammography Report Signed Patient: Ramona Olivia GMR#: [id number] : 1965Acct:[id number] Age/Sex: 59 / FADM Date: 11/04/24 Loc: KOBE Attending Dr: Shaun Garza CNM Ordering Physician: SHAUN GARZAesults: 1 Negative Date of Service: 11/04/24Follow Up: 1 Year From Orig inal Mammogram Procedure(s): MM tomosynthesis screening BI Accession Number(s): [id number] cc: Tova Cronin MD; SHAUN GARZA CNM [...] by: Kirsten Simmons DO 11/10/2024 04:05 PM EST Dictated By: Kirsten Simmons DO Signed By: <Electronically signed by Kirsten Simmons DO in OV> 11/10/24 1605 DD/ 1134 TD/TT: 11/04/24 1148 Adjunct Lecturer: Shaun Garza CNM IMG BI PROCEDURES Final R esult * Pap Smear (09/23/2024 1:41 PM EST) Swab Cervix uteri structure / Unknown 09/23/2024 1:41 PM EST 09/24/2024 8:30 AM EST [facility] - 10/01/2024 10:34 AM EST ----- ------- Name: Ramona Olivia G ?Age/Sex: 59/F ? : 1965 Unit#: [id number] ?? Attend Dr: SHAUN GARZA CNM ?Re09/23/24 ?Status: DEP REF ? Location: HO.HHCLNP ? Disch: ? ----- ------- SPEC : [id number] ?RECD: 09/24/24 ? STATUS: ??SOUT ? REQ NUM: [id number] ? NORIS: 09/23/24-134 ? SUBM DR: SHAUN GARZA CNM ? ENTERED: ??09/24/24 ?SP TYPE: Pap Smr ?OTHR DR: ? ORDERED: ??Pap Smear ? Interpretation ?? Satisfactory for evaluation. ?? Negative for intraepithelial lesion or malignancy. ?? No endocervical cells seen. ? HPV High Risk: ??Negative ? HPV Genotyping 16: ??Negative ?? HPV Genotyping 18: ??Negative ?Clinical Information LMP: Unknown date Previous PAP test: 2019, WNL ? Material Received ?? ThinPrep-Cervical ----- ------- Signed (signature on file) ASHIA Ledesma (ASCP) 10/01/24 1034 ? ----- ------- ? END OF REPORT ? us Shaun Garza [facility] CYTOLOGY ORDERABLES F inal Result [facility] [address] [place] [address] [phone] * HPV mRNA E6/E7 (09/24/2019 10:07 AM EST) HPV mRNA E6/E7 Not Detected NOT DETECTED [facility] Comment: This test was performed using the APTIMA(R) HPV Assay ([employer] This assay detects E6/E7 viral messenger RNA (mRNA) from 14 high-risk HPV types (16,18,31,33,35,39,45,51, 52,56,58,59,66,68). For additional information please refer to: http://education.PostRocket/faq/QYY300w5 (This link is being provided for informational/ educational purposes only.) The analytical performance characteristics of this assay have been determined by [employer] [place], [place]. The modifications have not been cleared or approved by the FDA. This assay has been validated pursuant to the CLIA regulations and is used for clinical purposes. [facility] Performed by [facility], [facility], [address] [place] [address] Chris Mares M.D., Ph.D., Director of Laboratories , CLIA [id number] Please note: ??Effective 07/10/2016, HPV testing will be performed using [employer]'s APTIMA test which targets mRNA. Detecting mRNA instead of DNA, as in older methods, offers significant improvements in specificity. 09/24/2019 10:0 7 AM EST Shaun Garza CNM HISTORICAL/NON ORDERABLE LABS Final Result [facility]ly [facility], [facility] [address] from Last 3 Months or Most Recently Relevant to Health Maintenance Insurance * Guarantor: Ramona Silva Account Type Relation to Patient Date of Phone Billing Address Personal/Family Self [address] [place], [place] [phone] [place] [address] - [employer] Care Teams Hotel Maintenance Engineer Relationship Specialty Start Date End Date Tova Cronin MD [address] [place] [address] PCP - General Family Medicine 10/13/19 Yeison Olivia, PharmD [address] [place] [address] Pharmacist Internal Medicine 11/27/22
--- OUTSIDE RECORDS SUMMARY | 2024-12-30 18:11 | XMS_ITS | Encounter Summary ---
Author Organization [employer] Address [address] 7[address] [place] [address] Care Team Providers Care Health And Wellness Advisor Name Role Phone Tova Cronin MD Primary Care Provider + Yeison Olivia PharmD Unavailable [phone] Reason for Visit * Reason Onset Date Comments Med Refill 05/04/2023 Encounter Details Date Type Department Care Team (Late st Contact Info) Description 05/04/2023 Telephone [facility] [address] [place], [place] [phone] Tova Cronin MD [address] [place], [place] [phone] Med Refill Social History Tobacco Use Types [...] refill on ergocalciferol (Vitamin D-2) 1.25 MG (96483 UT) capsule documented in this encounter Plan of Treatment Upcoming Encounters Date Type Department Care Team (Late st Contact Info) Description 01/13/2025 11:45 AM EDT Office Visit [facility] [address] [place] [phone] Tova Cronin MD [address] [place] [phone] documented as of this encounter Goals Goal [...] documented as of this encounter Care Teams Health And Wellness Advisor Relationship Specialty Start Date End Date Tova Cronin MD [address] [place] [phone] PCP - General Family Medicine 10/13/19 Yeison Olivia PharmD [address] [place] [phone] Pharmacist Internal Medicine 11/27/22 documented as of this encounter
== END 2024-12-30 14:23 | disposition home or self-care (01) ==
LOC: HO.MAMMO 14:22
PROVIDERS: PCP Internal Medicine; Visit Provider Internal Medicine
DX: Z13.820 Encounter for screening for osteoporosis (principal); Z78.0 Asymptomatic menopausal state; E55.9 Vitamin D deficiency, unspecified
CPT/HCPCS: 77080

== ENCOUNTER → 2024-12-30 14:30 | Outpatient (BNV) | payer OTHER, SELFPAY | PROVIDERS: PCP Internal Medicine; Visit Provider Radiology Diagnostic Radiology | DX: E28.39 Other primary ovarian failure (principal) | CPT/HCPCS: 77080 ==